=== PATIENT | male | born 1955 | race Caucasian/White ===

== ENCOUNTER 2023-10-17 21:57 | Emergency (ER) | payer MEDICARE, OTHER, SELFPAY ==
[2023-10-17 22:01] VITALS: BP 140/61
[2023-10-17 22:08] LABS: Glucose - Point of Care 167 mg/dl (70-99)
[2023-10-17 22:36] LABS: COVID-19 Antigen Negative (Negative)
--- NOTE | 2023-10-17 23:02 | ED.GENMED ---
History of Present Illness
General
Chief Complaint: Weakness
Source: patient
Exam Limitations: none
Time Seen by Provider: 10/17/23 22:30
Travel History
Have you had any contact with someone who has COVID-19?: No
Do you have any symptoms of coronavirus? Fever > 100 degrees, chills, cough, shortness of breath, sore throat, loss of taste or smell, muscle aches, or headache?: No
History of Present Illness
History of Present Illness:
This is a 68 year old male that comes in with c/o dizziness. State that he was at work and he bent over and he lost his balance. States that he was dizzy and grabbing onto things. States that he got help to a chair and he felt that the room was
spinning. States that he felt weak and dizzy. States that he got a headache on the top of his head and then felt like he was spinning. Denies dizziness at this time. Denies any fever, chills, chest pain, SOB, abd pain, nausea, vomiting, diarrhea,
urinary burning.
Past History
Past History
ED Past Medical History: Arrthythmia (atrial fibrillation), COPD and NIDDM
ED Past Surgical History: Cardiac (Ablation X 2), Orthopedic (Neck fusion, ) and Urological (Prostate Surgery just 2 weeks ago from 10/17/23)
Social History
Tobacco: Smoker
Alcohol: Daily (Wine 2 glasses)
Personal: Single
Living: alone
Employment: Employed
Review of Systems
Review of Systems
All Other Systems: ROS reviewed and negative except as documented in HPI and ROS
Constitutional: Reports no symptoms; Denies fever or chills
EENT: Reports no symptoms
Respiratory: Reports no symptoms; Denies cough or trouble breathing
Cardiac: Reports no symptoms; Denies chest pain
ABD/GI: Reports no symptoms; Denies abdominal pain, nausea, vomiting or diarrhea
: Reports no symptoms; Denies dysuria, frequency or urgency
Musculoskeletal: Reports no symptoms
Skin: Reports no symptoms
Neurological: Reports dizzy and headache
Psychiatric: Reports no symptoms
Phy Exam
General Physical Exam
General Presentation: well appearing and no apparent distress
General age: appears stated age
General Skin: warm and dry
General Habitus: normal
General Mental: alert
General Hydration: appears well hydrated
ENT Exam
ENT Exam: TM's normal, pharynx normal and neck supple
Eye Exam
Eye Exam: EOMI
Cardiovascular Exam
Cardiovascular Exam: regular rate/rhythm, no edema, no murmur and normal peripheral pulses
Pulmonary Exam
Pulmonary Exam: lungs clear, no respiratory distress, no rales, chest non tender, no crackles, no rhonchi, no wheezing and no cough
Gastrointestinal Exam
Gastrointestinal Exam: normal bowel sounds, non tender, soft, no organomegaly, no pulsatile mass and non distended
Musculoskeletal Exam
Musculoskeletal Exam: full ROM and no edema
Skin Exam
Skin Exam: normal color, warm/dry, no rash and no petechia
Psychiatric Exam
Psychiatric Exam: normal mood/affect
Course
Orders/Labs/Results
Orders:
Orders
10/17/23 22:08
Electrocardiogram (*1) Urgent
Reason for Study: Syncope
10/17/23 22:09
EKG- Treatment ONCE
10/17/23 22:10
COVID-19 Antigen Urgent
Source: Nasal Swab
Influenza A+B Rapid Molecular Urgent
[facility] Source: Nasal Swab
Specimen Description:
10/17/23 22:41
0.9% Sodium Chloride 1000 ml [Nss] 1,000 ml IV BOLUS
10/17/23 22:42
CT Head W/o Iv Contrast Urgent
Comment:
Reason For Exam: Dizziness
Urinalysis Reflex To Culture Urgent
Nursing to Place Non Medication Order As Directed
Physician Order: Please interrogate pacer
10/17/23 23:09
Complete Blood Count/With Diff Urgent
Comprehensive Metabolic Panel Urgent
Troponin I Urgent
Abnormal Lab Results
10/17/23 10/17/23
22:07 23:09
RBC 4.40 L 10^6/uL
(4.70-6.10)
MCV 97.5 H fL
(80.0-94.0)
MCH 34.3 H pg
(27.0-31.0)
Absolute Monos (auto) 0.7 H 10^3/uL
(0.1-0.6)
Lymphocytes % 19.3 L %
(20.5-51.1)
Sodium 134 L mmol/L
(135-145)
Creatinine 0.6 L mg/dL
(0.7-1.3)
Glucose 165 H mg/dl
(70-99)
POC Glucose 167 H mg/dl
(70-99)
10/17/23 23:09
10/17/23 23:09
Anemia, Glucose nonfasting. COVID and Influenza negative. Troponin <0.012,
Vital Signs
Initial and Last Documented VS:
Initial Vital Signs
Temp Pulse Resp BP Pulse Ox
98.2 F 60 18 140/61 97
10/17/23 22:01 10/17/23 22:01 10/17/23 22:01 10/17/23 22:01 10/17/23 22:01
Last Documented Vital Signs
Temp Pulse Resp BP Pulse Ox
98.2 F 64 20 140/67 97
10/17/23 22:01 10/18/23 00:02 10/18/23 00:02 10/18/23 00:02 10/18/23 00:02
MDM/Problems Addressed
Differential Diagnosis Includes:
Dizziness, Vertigo, Dehydration,
MDM/Problems Addressed:
This is a 68 year old male that comes in with c/o dizziness. States that he bent over and became very dizzy. States that he was grabbing for things to hold onto and he got help and was placed in a chair. State that he then felt like he was spinning.
Will get labs, CT head, IV fluids.
Back into see patient. Patient states that he is feeling much better. States that he is just hungry and ready to go home. Got patient OOB and ambulated in the room without assistance and is very stable. Will discharge home.
Chronic conditions affecting care:
NA
Acute Exacerbation and/or Progression of Chronic Illness:
NA
*Radiology
Radiology exam reviewed: radiology read reviewed (CT head- night hawk- NO acute intracranial hemorrhage, mass or mass-effect. White matter small vessel ischemic disease. Diffuse atrophy with ventriculomegaly. Visualized paranasal sinuses, middle
ears and mastoid air cells are clear. )
*Pulse Oximetry
Patient hypoxic: no
*EKG
Interpreted by ED Provider?: Yes
Heart Rate: 62
Rate: normal
Rhythm: av sequential
[place]: normal axis
*Critical Care Note
Total Time (30-74mins, 75-104mins- exclusive of procedures): Not Applicable
ED Attending Note
-
Portions of this chart may have been created with voice recognition software.� Occasional wrong word or��sound alike� substitutions may have occurred due to the inherent limitations of voice recognition software.
Discharge Plan
Departure
Patient Disposition: Home (Routine Discharge)
Date of Disposition: 10/18/23
Time of Disposition: 00:50
Patient with high blood pressure during this ER visit?: Yes
Condition: Good
Covid-19: Negative COVID-19
Discharge Problem:
Dizziness
Instructions: Dizziness, Adult ED, BLOOD PRESSURE
Prescriptions:
No Action
benzonatate 100 mg capsule
100 mg PO BID PRN (Reason: Cough) Qty: 14 0RF
azithromycin 250 mg tablet
250 mg PO DAILY 4 Days Qty: 4 0RF
Referrals:
Beverly Morris MD [Active] - Call in 1-3 days for appt
UNKNOWN - PT DOES,NOT KNOW [Unknown Provider] -
Activity Restrictions/Additional Instructions:
As discussed, your blood work shows slight anemia, otherwise your labs are normal. You are COVID and Influenza negative. Your CT of the head is normal. Please increase your water intake to 8-8oz glasses daily. Follow up with the family doctor for
recheck. IF YOU HAVE INCREASED OR CHANGING DIZZINESS, OR YOU HAVE ANY OTHER CONCERNS PLEASE RETURN TO THE EMERGENCY ROOM.
Interventions
Interventions:
*Risk Screen - Suicide Last Done: 10/17/23 22:01
*General Assessment Last Done: 10/17/23 22:01
*Neglect/Abuse Screening Last Done: 10/17/23 22:01
*ED COVID-19 Vaccine History Last Done: 10/17/23 22:01
ED- Cardiac Assessment Last Done: 10/17/23 23:40
ED- Neurological Assessment Last Done: 10/17/23 23:40
ED- Pulmonary Assessment Last Done: 10/17/23 23:40
[2023-10-17] MEDS: NSS 1000 IV (23:08)
[2023-10-17 23:16] LABS: % Basophils 0.7 % (0-2); % Eosinophils 1.9 % (0-6); % Immature Granulocytes 0.3 % (0-0.5); % Lymphocytes 19.3 % (20.5-51.1); % Monocytes 8.7 % (1.7-9.3); % Neutrophils 69.1 % (42.2-75.2); Absolute Basophils 0.1 10^3/uL (0-0.2); Absolute Eosinophils 0.1 10^3/uL (0-0.7); Absolute Lymphocytes 1.4 10^3/uL (1.2-3.4); Absolute Monocytes 0.7 10^3/uL (0.1-0.6); Absolute Neutrophils 5.2 10^3/uL (1.4-6.5); Hematocrit 42.9 % (39.0-52.0); Hemoglobin 15.1 g/dL (13.0-18.0); Mean Corp Hgb Conc. 35.2 g/dL (33.0-37.0); Mean Corpuscular Hgb 34.3 pg (27.0-31.0); Mean Corpuscular Volume 97.5 fL (80.0-94.0); Mean Platelet Volume 9.5 fL (7.4-10.4); Nucleated Red Blood Cells % 0 % (-); Platelet Count 140 10^3/uL (130-400); Red Cell Dist. Width 13.2 % (11.5-14.5); White Blood Cell Count 7.5 10^3/uL (4.8-10.8)
[2023-10-17 23:40] LABS: ALT (SGPT) 24 U/L (0-50); AST (SGOT) 28 U/L (17-59); Albumin 4.6 g/dl (3.5-5.0); Alkaline Phosphatase 76 U/L (38-126); Blood Urea Nitrogen 19 mg/dl (9-20); Calcium 9.8 mg/dl (8.4-10.2); Carbon Dioxide 23 mmol/L (22-30); Chloride 106 mmol/L (98-107); Glucose 165 mg/dl (70-99); Sodium 134 mmol/L (135-145); Total Bilirubin 0.7 mg/dl (0.2-1.3); Total Protein 7.4 g/dl (6.3-8.2); Troponin I < 0.012 ng/ml; eGFR > 60.00
[2023-10-18 00:02] VITALS: BP 140/67
[2023-10-18 01:10] LABS: Glucose - Point of Care 129 mg/dl (70-99)
== END 2023-10-18 01:12 | disposition home or self-care (01) ==
LOC: EMR 21:57
PROVIDERS: Clinical Nurse Specialist Family Health; Emergency Medicine; EMERGENCY PHYSICIAN Emergency Medicine
DX: R42 Dizziness and giddiness (principal); R03.0 Elevated blood-pressure reading, without diagnosis of hypertension; F17.200 Nicotine dependence, unspecified, uncomplicated; Z11.52 Encounter for screening for COVID-19
CPT/HCPCS: 99284; 96360; 70450; 80053; 82962; 84484; 85025; 87502; 87811; 93005

== ENCOUNTER → 2023-12-30 06:23 | Day surgery (SDC) | payer MEDICARE, OTHER, SELFPAY ==
[2023-12-30 08:15] LABS: Glucose - Point of Care 121 mg/dl (70-99)
== END ==
LOC: GI 06:23
PROVIDERS: ATTENDING PHYSICIAN Internal Medicine Gastroenterology
DX: R19.4 Change in bowel habit (principal); R63.4 Abnormal weight loss; K57.50 Diverticulosis of both small and large intestine without perforation or abscess without bleeding; K64.8 Other hemorrhoids; K31.7 Polyp of stomach and duodenum; R12 Heartburn; Z53.8 Procedure and treatment not carried out for other reasons
CPT/HCPCS: 45378; 43239; 88305; 82962

== ENCOUNTER → 2024-01-14 13:43 | Outpatient (REF) | payer MEDICARE, OTHER, SELFPAY ==
[2024-01-14 14:59] LABS: % Basophils 0.8 % (0-2); % Eosinophils 2.5 % (0-6); % Immature Granulocytes 0.6 % (0-0.5); % Lymphocytes 20.3 % (20.5-51.1); % Monocytes 7.2 % (1.7-9.3); % Neutrophils 68.6 % (42.2-75.2); Absolute Basophils 0.1 10^3/uL (0-0.2); Absolute Eosinophils 0.2 10^3/uL (0-0.7); Absolute Immature Granulocytes 0.1 10^3/uL (0-0.05); Absolute Lymphocytes 1.6 10^3/uL (1.2-3.4); Absolute Monocytes 0.6 10^3/uL (0.1-0.6); Absolute Neutrophils 5.4 10^3/uL (1.4-6.5); Hematocrit 49.1 % (39.0-52.0); Hemoglobin 16.9 g/dL (13.0-18.0); Mean Corp Hgb Conc. 34.4 g/dL (33.0-37.0); Mean Corpuscular Hgb 33.3 pg (27.0-31.0); Mean Corpuscular Volume 96.7 fL (80.0-94.0); Mean Platelet Volume 9.9 fL (7.4-10.4); Nucleated Red Blood Cells % 0 % (-); Platelet Count 181 10^3/uL (130-400); Red Blood Cell Count 5.08 10^6/uL (4.70-6.10); Red Cell Dist. Width 11.9 % (11.5-14.5); White Blood Cell Count 7.9 10^3/uL (4.8-10.8)
[2024-01-14 15:22] LABS: Urine Albumin Negative (Neg - Trace); Urine Bilirubin Negative (Negative); Urine Character Clear (Clear); Urine Color Yellow; Urine Glucose 3+ (Negative); Urine Ketone Negative (Negative); Urine Leukocyte Negative (Negative); Urine Nitrite Negative (Negative); Urine Occult Blood Negative (Negative); Urine Specific Gravity 1.015 (<1.030); Urine Urobilinogen Negative (Neg - 1+)
[2024-01-14 15:53] LABS: ALT (SGPT) 23 U/L (0-50); AST (SGOT) 21 U/L (17-59); Albumin 4.7 g/dl (3.5-5.0); Alkaline Phosphatase 76 U/L (38-126); Blood Urea Nitrogen 18 mg/dl (9-20); Calcium 10.5 mg/dl (8.4-10.2); Carbon Dioxide 29 mmol/L (22-30); Chloride 102 mmol/L (98-107); Glucose 201 mg/dl (70-99); HDL Cholesterol 64 mg/dl; LDL Cholesterol, Calculated 170 mg/dl; Potassium 5.8 mmol/L (3.5-5.1); Sodium 140 mmol/L (135-145); Total Bilirubin 0.6 mg/dl (0.2-1.3); Total Cholesterol 256 mg/dl (50-199); Total Protein 7.6 g/dl (6.3-8.2); Triglyceride 113 mg/dl (10-149); Very Low Density Lipoprotein 22 mg/dl (0-30); eGFR > 60.00
[2024-01-14 16:08] LABS: Vitamin D, 25-OH*** 27.1 ng/mL (30-80)
[2024-01-14 16:22] LABS: PSA, Total - Screen 5.02 ng/ml (0.0-4.0); TSH Reflex To Free T4 0.51 uIU/ml (0.47-4.68)
[2024-01-15 09:34] LABS: Glycohemoglobin (HgbA1c) 9.9 % (4.0-5.6)
== END ==
LOC: REG 13:43
PROVIDERS: ATTENDING PHYSICIAN Nurse Practitioner Family
DX: Z76.89 Persons encountering health services in other specified circumstances (principal); Z01.89 Encounter for other specified special examinations; E11.9 Type 2 diabetes mellitus without complications; E78.2 Mixed hyperlipidemia; K21.9 Gastro-esophageal reflux disease without esophagitis; I10 Essential (primary) hypertension; I48.91 Unspecified atrial fibrillation; Z12.5 Encounter for screening for malignant neoplasm of prostate; E55.9 Vitamin D deficiency, unspecified
CPT/HCPCS: 36415; 80053; 80061; 81003; 82306; 83036; 84443; 85025; G0103

== ENCOUNTER → 2024-01-16 14:33 | Outpatient (REF) | payer MEDICARE, OTHER, SELFPAY ==
[2024-01-16 15:26] LABS: Blood Urea Nitrogen 18 mg/dl (9-20); Calcium 10.6 mg/dl (8.4-10.2); Carbon Dioxide 30 mmol/L (22-30); Chloride 101 mmol/L (98-107); Glucose 235 mg/dl (70-99); Potassium 5.6 mmol/L (3.5-5.1); Sodium 138 mmol/L (135-145); eGFR > 60.00
== END ==
LOC: REG 14:33
PROVIDERS: ATTENDING PHYSICIAN Nurse Practitioner Family
DX: R89.9 Unspecified abnormal finding in specimens from other organs, systems and tissues (principal)
CPT/HCPCS: 36415; 80048

== ENCOUNTER → 2024-02-13 13:06 | Outpatient (REF) | payer MEDICARE, OTHER, SELFPAY ==
[2024-02-13 13:51] LABS: ALT (SGPT) 24 U/L (0-50); AST (SGOT) 24 U/L (17-59); Albumin 4.6 g/dl (3.5-5.0); Alkaline Phosphatase 78 U/L (38-126); Blood Urea Nitrogen 20 mg/dl (9-20); Calcium 10.3 mg/dl (8.4-10.2); Carbon Dioxide 25 mmol/L (22-30); Chloride 102 mmol/L (98-107); Glucose 182 mg/dl (70-99); Potassium 4.6 mmol/L (3.5-5.1); Sodium 137 mmol/L (135-145); Total Bilirubin 0.6 mg/dl (0.2-1.3); Total Protein 7.5 g/dl (6.3-8.2); eGFR > 60.00
[2024-02-15 20:39] LABS: Fructosamine 383 umol/L (205-285)
== END ==
LOC: REG 13:06
PROVIDERS: ATTENDING PHYSICIAN Nurse Practitioner Family
DX: E11.9 Type 2 diabetes mellitus without complications (principal); E11.65 Type 2 diabetes mellitus with hyperglycemia; E78.2 Mixed hyperlipidemia
CPT/HCPCS: 36415; 80053; 82985

== ENCOUNTER → 2024-03-05 12:39 | Outpatient (REF) | payer MEDICARE, OTHER, SELFPAY ==
[2024-03-05 13:43] LABS: % Basophils 0.6 % (0-2); % Eosinophils 3.1 % (0-6); % Immature Granulocytes 0.5 % (0-0.5); % Lymphocytes 20.7 % (20.5-51.1); % Monocytes 8.8 % (1.7-9.3); % Neutrophils 66.3 % (42.2-75.2); Absolute Basophils 0.1 10^3/uL (0-0.2); Absolute Eosinophils 0.3 10^3/uL (0-0.7); Absolute Lymphocytes 1.7 10^3/uL (1.2-3.4); Absolute Monocytes 0.7 10^3/uL (0.1-0.6); Absolute Neutrophils 5.4 10^3/uL (1.4-6.5); Hematocrit 47.7 % (39.0-52.0); Hemoglobin 16.7 g/dL (13.0-18.0); Mean Corpuscular Hgb 33.7 pg (27.0-31.0); Mean Corpuscular Volume 96.4 fL (80.0-94.0); Nucleated Red Blood Cells % 0 % (-); Platelet Count 196 10^3/uL (130-400); Red Blood Cell Count 4.95 10^6/uL (4.70-6.10); Red Cell Dist. Width 12.5 % (11.5-14.5); White Blood Cell Count 8.1 10^3/uL (4.8-10.8)
[2024-03-05 14:19] LABS: ALT (SGPT) 23 U/L (0-50); AST (SGOT) 27 U/L (17-59); Albumin 4.9 g/dl (3.5-5.0); Alkaline Phosphatase 73 U/L (38-126); Blood Urea Nitrogen 18 mg/dl (9-20); Calcium 10.4 mg/dl (8.4-10.2); Carbon Dioxide 31 mmol/L (22-30); Chloride 97 mmol/L (98-107); Glucose 134 mg/dl (70-99); HDL Cholesterol 55 mg/dl; LDL Cholesterol, Calculated 115 mg/dl; Potassium 4.6 mmol/L (3.5-5.1); Sodium 138 mmol/L (135-145); Total Bilirubin 0.7 mg/dl (0.2-1.3); Total Cholesterol 193 mg/dl (50-199); Total Protein 7.5 g/dl (6.3-8.2); Triglyceride 115 mg/dl (10-149); Very Low Density Lipoprotein 23 mg/dl (0-30); eGFR > 60.00
[2024-03-05 14:33] LABS: FSH 2.5 mIU/ml (1.55-9.74); Luteinizing Hormone 1.04 mIU/ml (1.24-7.80); Prolactin 10.7 ng/ml (3.7-17.9)
[2024-03-05 14:47] LABS: PSA, Total - Diagnostic 3.58 ng/ml (0.0-4.0)
[2024-03-05 14:48] LABS: Estradiol 44.6 pg/ml (5.4-66)
[2024-03-07 19:45] LABS: Thyroglobulin Antibodies <0.9 IU/mL (0.0-4.0); Thyroid Peroxidase Ab (TPO) 0.8 IU/mL (0.0-9.0)
== END ==
LOC: REG 12:39
PROVIDERS: ATTENDING PHYSICIAN Urology; FAMILY PHYSICIAN Nurse Practitioner Family; REFERRING PHYSICIAN Urology
DX: N52.9 Male erectile dysfunction, unspecified (principal)
CPT/HCPCS: 36415; 80053; 80061; 82670; 83001; 83002; 84146; 84153; 84270; 84402; 84403; 85025; 86376; 86800

== ENCOUNTER → 2024-04-07 13:52 | Outpatient (REF) | payer MEDICARE, OTHER, SELFPAY ==
[2024-04-07 15:41] LABS: % Basophils 0.8 % (0-2); % Eosinophils 3.8 % (0-6); % Immature Granulocytes 0.4 % (0-0.5); % Lymphocytes 25.8 % (20.5-51.1); % Monocytes 7.2 % (1.7-9.3); Absolute Basophils 0.1 10^3/uL (0-0.2); Absolute Eosinophils 0.3 10^3/uL (0-0.7); Absolute Lymphocytes 1.8 10^3/uL (1.2-3.4); Absolute Monocytes 0.5 10^3/uL (0.1-0.6); Absolute Neutrophils 4.4 10^3/uL (1.4-6.5); Hematocrit 45.8 % (39.0-52.0); Hemoglobin 16.3 g/dL (13.0-18.0); Mean Corp Hgb Conc. 35.6 g/dL (33.0-37.0); Mean Corpuscular Hgb 33.8 pg (27.0-31.0); Nucleated Red Blood Cells % 0 % (-); Platelet Count 186 10^3/uL (130-400); Red Blood Cell Count 4.82 10^6/uL (4.70-6.10); Red Cell Dist. Width 12.4 % (11.5-14.5); White Blood Cell Count 7.1 10^3/uL (4.8-10.8)
[2024-04-07 16:14] LABS: Microalbumin, Random Urine 0.9 mg/dl (0.6-1.7); Microalbumin/creatinine Ratio 14.9 mg/g
[2024-04-07 18:41] LABS: HIV Combo Negative (Negative)
[2024-04-08 10:07] LABS: Glycohemoglobin (HgbA1c) 7.1 % (4.0-5.6)
[2024-04-10 11:12] LABS: Syphilis/T. pallidum Ab Reflex Negative (Negative)
== END ==
LOC: REG 13:52
PROVIDERS: ATTENDING PHYSICIAN Nurse Practitioner Family
DX: E11.9 Type 2 diabetes mellitus without complications (principal); Z11.3 Encounter for screening for infections with a predominantly sexual mode of transmission
CPT/HCPCS: 36415; 82043; 82570; 83036; 85025; 86780; 87389

== ENCOUNTER → 2024-07-23 11:02 | Outpatient (REF) | payer MEDICARE, OTHER, SELFPAY ==
[2024-07-23 12:27] LABS: % Basophils 0.3 % (0-2); % Eosinophils 3.7 % (0-6); % Immature Granulocytes 0.2 % (0-0.5); % Lymphocytes 31.3 % (20.5-51.1); % Monocytes 8.7 % (1.7-9.3); % Neutrophils 55.8 % (42.2-75.2); Absolute Eosinophils 0.2 10^3/uL (0-0.7); Absolute Lymphocytes 1.9 10^3/uL (1.2-3.4); Absolute Monocytes 0.5 10^3/uL (0.1-0.6); Absolute Neutrophils 3.4 10^3/uL (1.4-6.5); Mean Corp Hgb Conc. 34.7 g/dL (33.0-37.0); Mean Corpuscular Hgb 34.2 pg (27.0-31.0); Mean Corpuscular Volume 98.6 fL (80.0-94.0); Nucleated Red Blood Cells % 0 % (-); Platelet Count 155 10^3/uL (130-400); Red Blood Cell Count 4.97 10^6/uL (4.70-6.10); Red Cell Dist. Width 12.5 % (11.5-14.5)
[2024-07-23 12:53] LABS: ALT (SGPT) 24 U/L (0-50); AST (SGOT) 25 U/L (17-59); Albumin 4.6 g/dl (3.5-5.0); Alkaline Phosphatase 57 U/L (38-126); Blood Urea Nitrogen 17 mg/dl (9-20); Carbon Dioxide 29 mmol/L (22-30); Chloride 102 mmol/L (98-107); Glucose 143 mg/dl (70-99); Lipase 51 U/L (23-300); Potassium 5.2 mmol/L (3.5-5.1); Sodium 141 mmol/L (135-145); Total Bilirubin 0.4 mg/dl (0.2-1.3); Total Protein 7.4 g/dl (6.3-8.2); eGFR > 60.00
[2024-07-23 13:01] LABS: IgA 245 mg/dl (70-400)
[2024-07-23 13:23] LABS: TSH Reflex To Free T4 1.16 uIU/ml (0.47-4.68)
[2024-07-24 15:43] LABS: tTG IgA Antibody 5.5 EU/ml (0-19); tTG IgG Antibody 8.3 EU/ml (0-19)
[2024-07-26 00:54] LABS: Endomysial IgA Antibody Titer <1:10 (<1:10)
== END ==
LOC: REG 11:02
PROVIDERS: ATTENDING PHYSICIAN Nurse Practitioner Family
DX: K52.9 Noninfective gastroenteritis and colitis, unspecified (principal); E07.9 Disorder of thyroid, unspecified
CPT/HCPCS: 36415; 80053; 82784; 83516; 83690; 84443; 85025; 86231

== ENCOUNTER → 2024-12-08 15:45 | Outpatient (REF) | payer OTHER, MEDICARE, SELFPAY | LOC: RAD 15:45 | PROVIDERS: ATTENDING PHYSICIAN Nurse Practitioner Family | DX: M25.531 Pain in right wrist (principal) | CPT/HCPCS: 73090; 73110; 73120 ==

== ENCOUNTER → 2025-01-18 13:39 | Outpatient (REF) | payer OTHER, MEDICARE, SELFPAY | LOC: MRI 3T 13:39 | PROVIDERS: ATTENDING PHYSICIAN Nurse Practitioner Family | DX: M54.12 Radiculopathy, cervical region (principal) | CPT/HCPCS: 72141; 76014; 76015 ==

== ENCOUNTER → 2025-04-30 12:40 | Outpatient (REF) | payer OTHER, MEDICARE, SELFPAY | LOC: EMG 12:40 | PROVIDERS: ATTENDING PHYSICIAN Orthopaedic Surgery Hand Surgery; FAMILY PHYSICIAN Nurse Practitioner Family | DX: G56.01 Carpal tunnel syndrome, right upper limb (principal); M19.041 Primary osteoarthritis, right hand; R20.0 Anesthesia of skin | CPT/HCPCS: 95886; 95909 ==

== ENCOUNTER → 2025-04-30 13:42 | Outpatient (REF) | payer MEDICARE, OTHER, SELFPAY ==
[2025-04-30 14:22] LABS: Hematocrit 46.8 % (39.0-52.0); Hemoglobin 16.5 g/dL (13.0-18.0); Mean Corp Hgb Conc. 35.3 g/dL (33.0-37.0); Mean Corpuscular Volume 94.9 fL (80.0-94.0); Nucleated Red Blood Cells % 0 % (-); Platelet Count 145 10^3/uL (130-400); Red Cell Dist. Width 13.2 % (11.5-14.5)
[2025-04-30 14:24] LABS: Urine Character Clear (Clear)
[2025-04-30 15:15] LABS: Microalb - Urine Creatinine 49.100 mg/dl
[2025-04-30 15:19] LABS: Microalbumin, Random Urine 1.2 mg/dl (0.6-1.7)
[2025-04-30 15:33] LABS: ALT (SGPT) 28 U/L (0-50); AST (SGOT) 20 U/L (17-59); Albumin 4.6 g/dl (3.5-5.0); Alkaline Phosphatase 67 U/L (38-126); Blood Urea Nitrogen 18 mg/dl (9-20); Calcium 10.3 mg/dl (8.4-10.2); Carbon Dioxide 27 mmol/L (22-30); Chloride 104 mmol/L (98-107); Glucose 178 mg/dl (70-99); HDL Cholesterol 59 mg/dl; LDL Cholesterol, Calculated 102 mg/dl; Potassium 5.4 mmol/L (3.5-5.1); Sodium 138 mmol/L (135-145); Total Protein 7.4 g/dl (6.3-8.2); Very Low Density Lipoprotein 18 mg/dl (0-30); eGFR > 60.00
[2025-05-01 09:18] LABS: Glycohemoglobin (HgbA1c) 7.5 % (4.0-5.6)
== END ==
LOC: REG 13:42
PROVIDERS: ATTENDING PHYSICIAN Nurse Practitioner Family
DX: E11.69 Type 2 diabetes mellitus with other specified complication (principal); Z01.89 Encounter for other specified special examinations
CPT/HCPCS: 36415; 80053; 80061; 81003; 82043; 82570; 83036; 84443; 85025

== ENCOUNTER → 2025-05-07 14:18 | Outpatient (REF) | payer MEDICARE, OTHER, SELFPAY ==
[2025-05-07 15:54] LABS: Blood Urea Nitrogen 17 mg/dl (9-20); Calcium 9.8 mg/dl (8.4-10.2); Carbon Dioxide 22 mmol/L (22-30); Chloride 107 mmol/L (98-107); Glucose 168 mg/dl (70-99); Potassium 4.5 mmol/L (3.5-5.1); Sodium 139 mmol/L (135-145); eGFR > 60.00
== END ==
LOC: REG 14:18
PROVIDERS: ATTENDING PHYSICIAN Nurse Practitioner Family
DX: R89.9 Unspecified abnormal finding in specimens from other organs, systems and tissues (principal)
CPT/HCPCS: 36415; 80048

== ENCOUNTER → 2025-05-11 15:57 | Outpatient (REF) | payer MEDICARE, OTHER, SELFPAY | LOC: REG 15:57 | PROVIDERS: ATTENDING PHYSICIAN Nurse Practitioner Family | DX: E11.65 Type 2 diabetes mellitus with hyperglycemia (principal); R39.11 Hesitancy of micturition; I48.91 Unspecified atrial fibrillation | CPT/HCPCS: 36415; 93005 ==

== ENCOUNTER → 2025-05-12 14:21 | Outpatient (REF) | payer MEDICARE, OTHER, SELFPAY ==
[2025-05-12 18:41] LABS: PSA, Total - Screen 4.04 ng/ml (0.0-4.0)
== END ==
LOC: REG 14:21
PROVIDERS: ATTENDING PHYSICIAN Nurse Practitioner Family; OTHER PHYSICIAN Urology
DX: Z12.5 Encounter for screening for malignant neoplasm of prostate (principal)
CPT/HCPCS: 36415; G0103

== ENCOUNTER → 2025-06-15 15:54 | Outpatient (REF) | payer MEDICARE, OTHER, SELFPAY | LOC: CLAB 15:54 | PROVIDERS: ATTENDING PHYSICIAN Urology | DX: R97.20 Elevated prostate specific antigen [PSA] (principal) | CPT/HCPCS: 88305 ==

== ENCOUNTER 2025-07-22 22:54 | Inpatient (IN) | payer MEDICARE, OTHER, SELFPAY ==
[2025-07-22 19:43] VITALS: BP 131/75
[2025-07-22 20:00] VITALS: BP 116/64
[2025-07-22 20:01] VITALS: BMI 23.6
[2025-07-22 20:17] LABS: Hematocrit 41.3 % (39.0-52.0); Hemoglobin 14.3 g/dL (13.0-18.0); Mean Corp Hgb Conc. 34.6 g/dL (33.0-37.0); Mean Corpuscular Volume 96.3 fL (80.0-94.0); Nucleated Red Blood Cells % 0 % (-); Platelet Count 199 10^3/uL (130-400); Red Cell Dist. Width 12.4 % (11.5-14.5)
[2025-07-22 20:34] LABS: ALT (SGPT) 30 U/L (0-50); AST (SGOT) 24 U/L (17-59); Albumin 3.6 g/dl (3.5-5.0); Alkaline Phosphatase 98 U/L (38-126); Blood Urea Nitrogen 14 mg/dl (9-20); Calcium 9.1 mg/dl (8.4-10.2); Carbon Dioxide 27 mmol/L (22-30); Chloride 101 mmol/L (98-107); Estimated Creatinine Clearance 116 ml/min; Glucose 268 mg/dl (70-99); Potassium 4.1 mmol/L (3.5-5.1); Sodium 133 mmol/L (135-145); Total Protein 6.6 g/dl (6.3-8.2); eGFR > 60.00
--- NOTE | 2025-07-22 20:37 | ED.GENMED ---
History of Present Illness
General
Chief Complaint: Cough
Source: patient and physician (Urgent care physician)
Exam Limitations: none
Time Seen by Provider: 07/22/25 20:24
Nursing documentation reviewed up to this point in time: agreed with
History of Present Illness
History of Present Illness:
69-year-old male with a past medical history of atrial fibrillation on Eliquis, pacemaker, diabetes, hypertension who presents to the emergency department for evaluation of shortness of breath�was seen in urgent care and noted to be hypoxic,
referred to the ER. Patient reports that symptoms started 6 days ago�he was on a vacation in [place] and when he was walking around the airport on his way home he noticed that he was very short of breath. He says that when he returned home
he had to take 2 long car rides and even while driving noted that he was feeling very short of breath. He says that he started to develop cough that was initially productive of yellowish sputum with occasional scant hemoptysis. He says he was
having some fatigue and general achiness. Initially presented to urgent care 07/18/2025 and had a chest x-ray that was apparently concerning for a left lower lobe pneumonia. He was started on antibiotics (Augmentin and azithromycin). He says that
despite this he has had continued shortness of breath and cough which prompted return visit to the urgent care. He had a repeat chest x-ray today which showed new right lower lung infiltrate and left pleural effusion and he was noted to be hypoxic
and was referred to the ER. Aside from above symptoms he denies any chest pain. He has not had any fever. Has not had any swelling or pain in the legs. He did have some diarrhea a few days ago but he says this improved with Pepto-Bismol. Denies
any vomiting or abdominal pain. He does make note that after starting the antibiotic over the past 2 nights he has noticed pruritic rash.
Past History
Past History
ED Past Medical History: Arrthythmia (atrial fibrillation), COPD and NIDDM
ED Past Surgical History: Cardiac (Ablation X 2), Orthopedic (Neck fusion, ) and Urological (Prostate Surgery just 2 weeks ago from 2/29/24)
Social History
Tobacco: Smoker
Alcohol: Daily (Wine 2 glasses)
Personal: Single
Living: alone
Employment: Employed
Review of Systems
Review of Systems
All Other Systems: ROS reviewed and negative except as documented in HPI and ROS
Constitutional: Reports fatigue; Denies fever
EENT: Denies sore throat
Respiratory: Reports cough and trouble breathing
Cardiac: Denies chest pain or palpitations
ABD/GI: Reports diarrhea; Denies abdominal pain, nausea or vomiting
: Denies flank pain
Musculoskeletal: Denies neck pain or back pain
Skin: Reports itching and rash
Neurological: Denies dizzy or headache
Phy Exam
Physical Exam
Physical Exam:
General: Awake, alert, oriented x3; no acute distress
Head: Normocephalic, atraumatic
Eyes: Conjunctiva normal, sclera anicteric
Throat: Airway intact, handling secretions
Neck: Trachea midline, supple without meningismus
Lungs: Rales at the lung bases bilaterally; hypoxia requiring 4 L nasal cannula
Heart: Regular rate and rhythm, no murmurs, gallops, or rubs
Abd: Soft, non distended, nontender
Neuro: Grossly intact
Skin: Scattered papular rash on legs, abdomen, chest and back
Extremities: Warm and well-perfused, no edema, no calf tenderness
Scores
Heart Failure Risk
Heart Failure Risk Score: Not Applicable
Heart Score for Chest Pain Patients
STEMI patient?: Not applicable
Withdrawal Assessment of Alcohol
Withdrawal Assessment Completed?: Not applicable
Sepsis
Sepsis Screening
Sepsis Assessment: Sepsis
Sepsis Screen
Sepsis Screen: Sepsis
Date: 07/22/25
Time: 21:45
Course
Orders/Labs/Results
Orders:
Orders
07/22/25 19:49
Electrocardiogram (*1) Urgent
Reason for Study: Other
Other Reason for Exam: Possible Sepsis
Cardiac Monitoring- Treatment ONCE
EKG- Treatment ONCE
IV Insert/Care/Rem.- Treatment PRN
O2 Therapy [RESP] Urgent
Titrate/Wean O2 to maintain O2 sat greater than (%): 93
Special Instructions: TO MAINTAIN CONTINUOUS O2 SATS > OR = 93%
Pulse Ox/cont/shift [RESP] Urgent
Quantity: 1
Special Instructions: CONTINUOUS
07/22/25 20:06
Complete Blood Count/With Diff Urgent
Comprehensive Metabolic Panel Urgent
Lactic Acid Q4H
Comment: ON ICE, CANCEL 2ND ORDER IF FIRST LACTIC ACID LEVEL <2
Blood Culture Q20M
[facility] Source: Blood/Venous
Specimen Description:
Comment: Urgent from separate sites. If patient screens positive for possible sepsis
07/22/25 20:19
Blood Culture Q20M
[facility] Source: Blood/Venous
Specimen Description:
Comment: Urgent from separate sites. If patient screens positive for possible sepsis
07/22/25 20:37
CT Chest PE Study Urgent
Comment:
Reason For Exam: sob, hypoxia, cough (hemoptysis)
07/22/25 20:43
Interrogate Pacemaker- Treatment ONCE
07/22/25 21:07
COVID-19 Antigen Urgent
Source: Nasal Swab
Influenza A+B Rapid Molecular Urgent
[facility] Source: Nasal Swab
Specimen Description:
07/22/25 21:45
CefTRIAXone [Rocephin] 1,000 mg IV NOW STA
Doxycycline Hyclate [Vibramycin] 100 mg 0.9% Sodium Chloride 250 ml [Nss] 250 ml IV NOW
07/22/25 21:49
Dexamethasone Sod Phosphate [Decadron] 10 mg IV NOW STA
Diphenhydramine [Benadryl] 25 mg IV NOW STA
Abnormal Lab Results
07/22/25
20:06
RBC 4.29 L 10^6/uL
(4.70-6.10)
MCV 96.3 H fL
(80.0-94.0)
MCH 33.3 H pg
(27.0-31.0)
Abs Immat Gran (auto) 0.1 H 10^3/uL
(0-0.05)
Absolute Neuts (auto) 7.3 H 10^3/uL
(1.4-6.5)
Absolute Monos (auto) 1.0 H 10^3/uL
(0.1-0.6)
Immature Gran % 1.0 H %
(0-0.5)
Lymphocytes % 13.3 L %
(20.5-51.1)
Monocytes % 9.4 H %
(1.7-9.3)
Sodium 133 L mmol/L
(135-145)
Creatinine 0.5 L mg/dL
(0.7-1.3)
Glucose 268 H mg/dl
(70-99)
07/22/25 20:06
07/22/25 20:06
Vital Signs
Initial and Last Documented VS:
Initial Vital Signs
Temp Pulse Resp BP Pulse Ox
36.6 C 101 26 131/75 84
07/22/25 19:43 07/22/25 19:43 07/22/25 19:43 07/22/25 19:43 07/22/25 19:43
Last Documented Vital Signs
Temp Pulse Resp BP Pulse Ox
36.6 C 91 20 116/64 91
07/22/25 19:43 07/22/25 20:15 07/22/25 20:15 07/22/25 20:00 07/22/25 20:39
MDM/Problems Addressed
Differential Diagnosis Includes:
Pneumonia, bronchitis, pulmonary embolism, CHF
MDM/Problems Addressed:
69-year-old male presents for evaluation of shortness of breath, cough as described above�initially seen in urgent care and diagnosed with pneumonia, started on Augmentin and azithromycin which caused what appears to be a drug rash but did not
improve his symptoms; he returned to the urgent care today and had chest x-ray which showed worsening findings and increased hypoxia which prompted referral to the ER. On arrival here he is tachycardic and tachypneic, hypoxic but normotensive and
afebrile. His physical exam is as above. I was able to review chest x-ray from today there is hazy opacity in the right lower lung as well as a left pleural effusion. Overall suspect that this is acute pneumonia however given his report of
hemoptysis his tachypnea, tachycardia, hypoxia and recent flight we will check CT chest to rule out PE although this is much less likely with patient being on Eliquis for his history of A-fib. Will check basic labs, lactate and blood cultures.
Swab for COVID and flu. Anticipate admission.
CT chest shows no PE but signs consistent with pneumonia bilaterally. Plan to treat with IV antibiotics for community-acquired pneumonia. Patient having pruritus from rash we will give some Decadron and Benadryl. Admit for continued management.
Discussed case with hospitalist.
Chronic conditions affecting care:
A-fib on Eliquis
*Radiology
Radiology exam reviewed: preliminary read by ED provider and radiology read reviewed
*Pulse Oximetry
SaO2: 91
Oxygen Mode of Delivery: Room air
Patient hypoxic: yes (84%)
*EKG
Interpreted by ED Provider?: Yes
Heart Rate: 89
Rate: normal
Rhythm: sinus
[place]: normal axis
Interval: normal interval
QRS Pattern: normal QRS
Ischemia: no ischemia
*Critical Care Note
Total Time (30-74mins, 75-104mins- exclusive of procedures): Not Applicable
Data Reviewed
Review of Other/Old Records Reveals: Labs and Records
Source: patient, records and physician (Urgent care physician)
Patient Management
Discussion with other providers: Hospitalist (Discussed with hospitalist)
Escalation/DeEscalation of care consider admission/obs:
Admission indicated
ED Attending Note
-
Portions of this chart may have been created with voice recognition software.� Occasional wrong word or��sound alike� substitutions may have occurred due to the inherent limitations of voice recognition software.
Discharge Plan
Departure
Patient Disposition: Admit
Date of Disposition: 07/22/25
Time of Disposition: 21:51
Admit to doctor: Anastasia
Presentation/result/management discussed w/ accepting MD/DO: Hospitalist
Discharge Problem:
Acute hypoxemic respiratory failure, Pneumonia, Drug rash
Prescriptions:
No Action
benzonatate 100 mg capsule
100 mg PO BID PRN (Reason: Cough) Qty: 14 0RF
azithromycin 250 mg tablet
250 mg PO DAILY 4 Days Qty: 4 0RF
Referrals:
Andrew Rosales CRNP [Family Provider, General]
Interventions
Interventions:
*Risk Screen - Suicide Last Done: 07/22/25 19:43
*General Assessment Last Done: 07/22/25 19:43
*Neglect/Abuse Screening Last Done: 07/22/25 19:43
*ED COVID-19 Vaccine History Last Done: 07/22/25 19:43
*ED Influenza Vaccine History Last Done: 07/22/25 19:43
[facility] Fall Risk Assessment Tool Last Done: 07/22/25 20:10
ED- Pulmonary Assessment Last Done: 07/22/25 20:03
Discharge Date and Time
Print Language: URDU
[2025-07-22 21:32] LABS: COVID-19 Antigen Negative (Negative)
[2025-07-22] MEDS: BENADRYL 25 MG IV (22:05)
[2025-07-22] MEDS: DECADRON 10 MG IV (22:06)
[2025-07-22] MEDS: ROCEPHIN 1000 MG IV (22:09)
--- NOTE | 2025-07-22 22:18 | HPS.HSE ---
Addendum entered and electronically signed by Geoff Hay MD 07/22/25 23:28:
CORRECTION:
Progressive Lobar PNA @ LLL and RML
Associated acute hypoxic RF requiring 4 L NC O2
Complicated by drug rash due to OP PO Augmentin and Z max
- afebrile, Nl WCC
- BCx sent
- Agree with IV <del>CFTZ</del> Cefepime and PO Doxy
- Wean O2 as able - Goal POx > 93 %
Original Note:
Family Physician
-
Family Physician: PIEDAD Carter
Chief Complaint
-
seen in urgent care and noted to be hypoxic, referred to the ER.
History of Present Illness
69M PMHX Prx AF, chr Eliquis, PPM implant, DM, pHTN seen at ER
- sent to ER from [facility] for evaluation of shortness of breath and hypoxia
- Initially presented to urgent care 07/18/2025 and CXR apparently concerning for a LLL PNA. He was started on Augmentin and azithromycin complicated by drug rash but did not improve
- he returned to the urgent care today for follow up - again CXR showed worsening findings and increased hypoxia which prompted referral to the ER
Medical History
Past Medical History
Past Medical History: Reports Arrhythmia (Prx AF on Eliquis ), COPD, HTN, NIDDM (NOS ) and Other (PPM implant )
Past Surgical History: Reports Cardiac (PPM implant, Ablation X 2)), Orthopedic (Neck fusion,) and Urological ((Prostate Surgery ( 10/17/23))
Social History
Tobacco: Smoker
Alcohol: Daily (2 glasses daily )
Personal: Single
Living: Alone
Employment: Employed
Family History
Family History: Not pertinent
Allergies / Home Medications
Allergies reflects when Allergies were last updated in [facility].
Home Medications with original date entered in [facility]
Allergy/Medication List:
Allergies
Allergy/AdvReac Type Severity Reaction Status Date / Time
metformin Allergy Unknown Unknown Verified 07/22/25 19:42
diazepam (From Valium) Allergy Unknown Verified 10/17/23 22:06
Home Medications
azithromycin 250 mg tablet 250 mg PO DAILY 4 days #4 tabs 08/24/23
benzonatate 100 mg capsule 100 mg PO BID PRN Cough #14 caps 08/24/23
Review of Systems
-
Constitutional: Reports No Symptoms
EENT: Reports No Symptoms
Respiratory: Reports See HPI, Cough and Trouble Breathing
Cardiac: Reports No Symptoms
Abdomen/GI: Reports No Symptoms
: Reports No Symptoms
Musculoskeletal: Reports No Symptoms
Skin: Reports No Symptoms
Neurological: Reports No Symptoms
Endocrine: Reports No Symptoms
Hematologic/Lymphatic: Reports No Symptoms
Psych: Reports No Symptoms
Physical Exam
Vital Signs
Vital Signs
Temp Pulse Resp BP Pulse Ox
97.9 F 91 20 116/64 91
07/22/25 19:43 07/22/25 20:15 07/22/25 20:15 07/22/25 20:00 07/22/25 20:39
Physical Exam
General: No Apparent Distress, Comfortable and Conversant
HEENT: NormoCephalic, Moist mucous membranes, Atraumatic and Other
Respiratory: Rales (at bases ) and Other (hypoxia requiring 4 L nasal cannula)
Cardiac: S1/S2 and Regular Rhythm; No Murmur or Rub
GI: Soft, Non Tender, Non Distended and Normal Bowel Sounds; No Organomegaly
Rectal: Deferred by Provider
Musculoskeletal: No Clubbing, No Cyanosis and No Edema
Skin: No Rash
Neuro: Awake, Alert and Nonfocal/grossly intact
Psych: Calm
Laboratory Results
-
07/22/25 20:06
07/22/25 20:06
Laboratory Results
Lactic Acid 1.2 mmol/L (0.7-2.0) 07/22/25 20:06
Total Bilirubin 0.4 mg/dl (0.2-1.3) 07/22/25 20:06
AST 24 U/L (17-59) 07/22/25 20:06
ALT 30 U/L (0-50) 07/22/25 20:06
Alkaline Phosphatase 98 U/L (38-126) 07/22/25 20:06
Data Reviewed
-
CT Scan: Report Reviewed by me
Lab Data: Labs Reviewed by me
Impression/Plan
-
Vital Signs
Temp Pulse Resp BP Pulse Ox
97.9 F 85 17 116/64 93
07/22/25 19:43 07/22/25 22:15 07/22/25 22:15 07/22/25 20:00 07/22/25 22:00
Laboratory Tests
07/22/25 07/22/25
20:06 21:07
WBC 10.2
Hgb 14.3
Plt Count 199
Sodium 133 L
BUN 14
Creatinine 0.5 L
eGFR > 60.00
SARS-CoV-2 Antigen Negative
NEG Flu A & B
CTC with PE protocol
- No evidence of pulmonary embolism.
- Pulmonary artery branching order level of the most proximal pulmonary embolism: N/A
- COPD.
- Mild to moderate left lower lobe pneumonia.
Mild right lower lobe pneumonia.
- Trace left pleural effusion.
- Mild reactive adenopathy.
- Mild esophageal wall thickening raises the possibility of esophagitis in the proper clinical setting.
NO PRIOR hospitalist admission:
ASSESSMENT & PLAN
Pending Rx reconciliation
Progressive Lobar PNA @ LLL and RML
Associated acute hypoxic RF requiring 4 L NC O2
Complicated by drug rash due to OP PO Augmentin and Z max
- afebrile, Nl WCC
- BCx sent
- Agree with IV CFTZ and PO Doxy
- Wean O2 as able - Goal POx > 93 %
No evidence of acute PE
Recent travelling
Pruritus from diffuse various stages of dug rash all over the body sm limbs ( KISHAN > [facility]
Recent drug rash to PO Augmentin and Z amax ?
- s/p Decadron and Benadryl
- Start Medrol dose pack and IV Benadryl PRN with hold index for AMS
Chronic conditions affecting care:
A FIb on Eliquis
DVT Px: on Eliquis
Code: Full
IP TLM
[2025-07-22 22:53] VITALS: BP 96/59
[2025-07-22] MEDS: VIBRAMYCIN 260 MG IV (22:57)
[2025-07-22 23:00] VITALS: BP 107/65
[2025-07-23] VITALS (9 sets, daily range): BP systolic 99–129; BP diastolic 45–67; PULSE 78; O2SAT 95; BMI 22.9
[2025-07-23] MEDS: BENADRYL 6.25 MG IV ×2 (01:21→16:44)
[2025-07-23] MEDS: MUCINEX 600 MG PO ×2 (08:46→20:34)
[2025-07-23] MEDS: VIBRAMYCIN 100 MG PO ×2 (08:46→20:34)
[2025-07-23 09:28] LABS: Hematocrit 42.3 % (39.0-52.0); Hemoglobin 14.4 g/dL (13.0-18.0); Mean Corp Hgb Conc. 34.0 g/dL (33.0-37.0); Mean Corpuscular Volume 98.6 fL (80.0-94.0); Platelet Count 193 10^3/uL (130-400); Red Cell Dist. Width 12.3 % (11.5-14.5)
[2025-07-23 10:24] LABS: ALT (SGPT) 28 U/L (0-50); AST (SGOT) 21 U/L (17-59); Albumin 3.5 g/dl (3.5-5.0); Alkaline Phosphatase 94 U/L (38-126); Blood Urea Nitrogen 16 mg/dl (9-20); Calcium 9.1 mg/dl (8.4-10.2); Carbon Dioxide 29 mmol/L (22-30); Chloride 100 mmol/L (98-107); Estimated Creatinine Clearance 116 ml/min; Glucose 302 mg/dl (70-99); Potassium 5.6 mmol/L (3.5-5.1); Sodium 134 mmol/L (135-145); Total Protein 6.3 g/dl (6.3-8.2); eGFR > 60.00
[2025-07-23] MEDS: STERILE WATER FOR INJECTION 10 ML IV ×3 (11:48→23:14)
[2025-07-23] MEDS: MAXIPIME 1000 MG IV ×3 (11:48→23:14)
--- NOTE | 2025-07-23 12:33 | PTOTSP ---
The patient is independent with ambulation and mobility, offering no concerns regarding mobility upon return home. No PT needs identified at this time, will sign off.
--- NOTE | 2025-07-23 14:44 | PTCARENOTE ---
Pt. called to report feeling SOB and wanted to ambulate with pulse ox. Pt. 86-91% on RA during ambulation around unit x2. Pt. with c/o feeling weak and sob. Pt. placed on 2L NC and laid back in bed at this time resting comfortably. Will pass on to
oncoming shift RN.
--- NOTE | 2025-07-23 15:28 | W.PN.HOSP.TC ---
Today's Communication/Plan
-
abx
f/u cultures
med rec
incentive charly
Assessment / Plan
Assessment / Plan
Physical Exam
General: No Apparent Distress, Comfortable and Conversant
HEENT: NormoCephalic, Moist mucous membranes, Atraumatic and Other
Respiratory: Rales (at bases ) and Other (hypoxia requiring 2L nasal cannula); tachypneic
Cardiac: S1/S2 and Regular Rhythm; No Murmur or Rub
GI: Soft, Non Tender, Non Distended and Normal Bowel Sounds; No Organomegaly
Rectal: Deferred by Provider
Musculoskeletal: No Clubbing, No Cyanosis and No Edema
Skin: No Rash
Neuro: Awake, Alert and Nonfocal/grossly intact
Psych: Calm
#Acute hypoxic respiratory failure
� Secondary to multifocal pneumonia
� Continue antibiotics
� Follow cultures
� Incentive spirometer, Acapella
� No evidence of wheezing
� Wean O2 as tolerated, goal O2 greater than 92%
� Sputum cultures if expectorating
#Hyperkalemia
� Lokelma
� Monitor
#Hyponatremia
� Continue to monitor with resuscitation
# Pruritus, diffuse
� Improved
� Stop steroids
� Benadryl as needed
#Atrial fibrillation
� Eliquis?
-requires med rec
#Tobacco use
� Stop last year
� Half pack for over 30 years
� Continue inhalers
� Follow-up outpatient
#DVT ppx
Eliquis
Anticipated Discharge: 24 - 48 hours
Subjective/Interval History
-
Date of Service: July 23, 2025
feeling better, although still tachypneic
Objective Data
-
Labs:
Laboratory Results
07/23/25
08:39
WBC 6.3
Hgb 14.4
Hct 42.3
Plt Count 193
Sodium 134 L
Potassium 5.6 H D
Chloride 100
Carbon Dioxide 29
BUN 16
Creatinine 0.6 L
Glucose 302 H
Calcium 9.1
Total Bilirubin 0.4
AST 21
ALT 28
Alkaline Phosphatase 94
Vital Signs:
Vital Signs
Temp Pulse Resp BP Pulse Ox
98.2 F 85 26 106/66 97
07/23/25 15:12 07/23/25 15:12 07/23/25 15:12 07/23/25 15:12 07/23/25 15:12
I&O
07/22/25 07/23/25 07/24/25
06:59 06:59 06:59
Intake Total 240 / 240
Output Total 500 / 500 700 / 700
Balance -260 / -260 -700 / -700
Review of Systems
-
History Source: Patient
All other systems: Not reviewed unless documented
Data Reviewed
-
CT Scan: Report Reviewed by me
Labs: Labs Reviewed by me
--- NOTE | 2025-07-23 15:55 | PTCARENOTE ---
Obtained home med list from patient and added to chart. Provider notified.
--- NOTE | 2025-07-23 15:57 | PTCARENOTE ---
Assumed care of patient at 3pm. Patient now on 2L of 02. After ambulating pulse ox spot checked and he was 87% on RA. No other changes noted in assessment. Plan of care ongoing.
--- NOTE | 2025-07-23 16:12 | CM ---
IA completed. IMM given and placed on the chart. Pt is independent in ADLs and IADLs. Lives alone in a single story home with 1 step at the entrance to the home. No hx of HH,, SNF, home O2 or DME. NO insecurities identified. Confirmed PCP, Rx,
insurance, and drug coverage
PCP: Andrew Rosales
Rx: [facility]
Plan: Home, no needs
[2025-07-23] MEDS: LOKELMA 10 GRAM PO (16:49)
[2025-07-23] MEDS: DETROL LA 4 MG PO (18:26)
[2025-07-23] MEDS: FLOMAX 0.4 MG PO (18:27)
[2025-07-23] MEDS: TOPROL XL 50 MG PO (18:27)
[2025-07-23] MEDS: CRESTOR 40 MG PO (18:27)
[2025-07-23] MEDS: SYMBICORT 80/4.5 MCG INHALER 2 PUFF INH (19:59)
[2025-07-23] MEDS: SPIRIVA RESPIMAT 2.5 MCG 2 PUFF INH (19:59)
[2025-07-23] MEDS: ELIQUIS 5 MG PO (20:34)
[2025-07-23] MEDS: WELLBUTRIN SR (12 hour sustained release) 150 MG PO (20:34)
[2025-07-24 03:20] VITALS: BP 104/54
[2025-07-24] MEDS: MAXIPIME 1000 MG IV ×4 (06:15→23:05)
[2025-07-24] MEDS: STERILE WATER FOR INJECTION 10 ML IV ×4 (06:16→23:05)
[2025-07-24 07:42] LABS: Hematocrit 38.3 % (39.0-52.0); Hemoglobin 13.4 g/dL (13.0-18.0); Mean Corp Hgb Conc. 35.0 g/dL (33.0-37.0); Mean Corpuscular Volume 99.2 fL (80.0-94.0); Platelet Count 221 10^3/uL (130-400); Red Cell Dist. Width 12.0 % (11.5-14.5)
[2025-07-24] MEDS: ANESTHETIC LOZENGE 1 LOZENGE PO (07:45)
[2025-07-24 07:46] VITALS: BP 111/59
[2025-07-24] MEDS: TOPROL XL 50 MG PO (08:02)
[2025-07-24] MEDS: FARXIGA 10 MG PO (08:02)
[2025-07-24] MEDS: CRESTOR 40 MG PO (08:02)
[2025-07-24] MEDS: VIBRAMYCIN 100 MG PO ×2 (08:03→20:41)
[2025-07-24] MEDS: WELLBUTRIN SR (12 hour sustained release) 150 MG PO ×2 (08:03→20:41)
[2025-07-24] MEDS: DETROL LA 4 MG PO (08:03)
[2025-07-24] MEDS: MUCINEX 600 MG PO ×2 (08:03→20:40)
[2025-07-24] MEDS: LEXAPRO 20 MG PO (08:04)
[2025-07-24] MEDS: PROSCAR 5 MG PO (08:04)
[2025-07-24] MEDS: FLOMAX 0.4 MG PO (08:04)
[2025-07-24] MEDS: ELIQUIS 5 MG PO ×2 (08:04→20:40)
[2025-07-24] MEDS: SPIRIVA RESPIMAT 2.5 MCG 2 PUFF INH (08:08)
[2025-07-24] MEDS: SYMBICORT 80/4.5 MCG INHALER 2 PUFF INH ×2 (08:08→21:30)
[2025-07-24 08:21] LABS: ALT (SGPT) 25 U/L (0-50); AST (SGOT) 23 U/L (17-59); Albumin 3.3 g/dl (3.5-5.0); Alkaline Phosphatase 111 U/L (38-126); Blood Urea Nitrogen 19 mg/dl (9-20); Calcium 8.9 mg/dl (8.4-10.2); Carbon Dioxide 29 mmol/L (22-30); Chloride 99 mmol/L (98-107); Estimated Creatinine Clearance 116 ml/min; Glucose 452 mg/dl (70-99); Potassium 4.4 mmol/L (3.5-5.1); Sodium 130 mmol/L (135-145); Total Protein 5.9 g/dl (6.3-8.2); eGFR > 60.00
[2025-07-24 08:47] LABS: Glucose - Point of Care 559 mg/dl (70-99)
[2025-07-24] MEDS: NOVOLOG FLEXPEN 5 UNITS SC (09:03)
[2025-07-24 10:00] LABS: Glucose 476 mg/dl (70-99)
[2025-07-24 10:04] LABS: Glycohemoglobin (HgbA1c) 8.8 % (4.0-5.9)
[2025-07-24 10:08] LABS: Glucose - Point of Care 415 mg/dl (70-99)
[2025-07-24] MEDS: JANUVIA 50 MG PO (11:46)
[2025-07-24] MEDS: LR 1000 IV (11:46)
[2025-07-24 12:03] LABS: Glucose - Point of Care 405 mg/dl (70-99)
[2025-07-24 12:43] VITALS: BP 106/52
[2025-07-24 12:45] LABS: Glucose 361 mg/dl (70-99)
[2025-07-24] MEDS: NOVOLOG FLEXPEN-LOW RESISTANCE 5 UNITS SC (12:48)
[2025-07-24] MEDS: HYDROCORTISONE 1% CREAM 1 APPLIC TOPICAL ×2 (12:49→20:46)
--- NOTE | 2025-07-24 13:19 | W.PN.HOSP.TC ---
Addendum entered and electronically signed by Jose Burk MD 07/25/25 14:39:
[id number]
Original Note:
Today's Communication/Plan
-
abx
januvia
ivf
monitor glucose levels
aiss
incentive charly
Assessment / Plan
Assessment / Plan
Physical Exam
General: No Apparent Distress, Comfortable and Conversant
HEENT: NormoCephalic, Moist mucous membranes, Atraumatic and Other
Respiratory: Rales (at bases ) and Other (hypoxia requiring 2L nasal cannula); tachypneic
Cardiac: S1/S2 and Regular Rhythm; No Murmur or Rub
GI: Soft, Non Tender, Non Distended and Normal Bowel Sounds; No Organomegaly
Rectal: Deferred by Provider
Musculoskeletal: No Clubbing, No Cyanosis and No Edema
Skin: No Rash
Neuro: Awake, Alert and Nonfocal/grossly intact
Psych: Calm
#Acute hypoxic respiratory failure
� Secondary to multifocal pneumonia
� Continue antibiotics
� Follow cultures
� Incentive spirometer, Acapella
� No evidence of wheezing
� Wean O2 as tolerated, goal O2 greater than 92%, improving
� Sputum cultures if expectorating
#Hyperkalemia
� Lokelma
� Monitor
#Psuedohyponatremia
-2/2 to elevated glucose
#Hyperglycemia
-2/2 to acute illness and medrol taper that was dced
-a1c 8.8
-refuses metformin due to Gi side effects
-start januvia
-IVF PRN
-AISS
# Pruritus, diffuse
� Improved
� Stop steroids
-add topical steroids
� Benadryl as needed
#Atrial fibrillation
� Eliquis
-requires med rec
#Tobacco use
� Stopped last year
� Half pack for over 30 years
� Continue inhalers
� Follow-up outpatient
#DVT ppx
Eliquis
Anticipated Discharge: Within 24 hours
Subjective/Interval History
-
Date of Service: July 24, 2025
Resp status improved although patient very hyperglycemic
Objective Data
-
Labs:
Laboratory Results
07/24/25 07/24/25 07/24/25
06:42 09:10 12:13
WBC 8.3
Hgb 13.4
Hct 38.3 L
Plt Count 221
Sodium 130 L
Potassium 4.4
Chloride 99
Carbon Dioxide 29
BUN 19
Creatinine 0.6 L
Glucose 452 H* 476 H* 361 H
Calcium 8.9
Total Bilirubin 0.3
AST 23
ALT 25
Alkaline Phosphatase 111
Vital Signs:
Vital Signs
Temp Pulse Resp BP Pulse Ox
98.2 F 67 16 106/52 91
07/24/25 12:43 07/24/25 12:43 07/24/25 12:43 07/24/25 12:43 07/24/25 12:43
I&O
07/23/25 07/24/25 07/25/25
06:59 06:59 06:59
Intake Total 240 / 240 960 / 960
Output Total 500 / 500 700 / 700
Balance -260 / -260 260 / 260
Review of Systems
-
History Source: Patient
All other systems: Not reviewed unless documented
Data Reviewed
-
Diagnostic Radiology: Report Reviewed by me
CT Scan: Report Reviewed by me
Labs: Labs Reviewed by me
[2025-07-24 15:14] VITALS: BP 103/51
[2025-07-24 18:05] LABS: Glucose - Point of Care 158 mg/dl (70-99)
[2025-07-24] MEDS: NOVOLOG FLEXPEN-LOW RESISTANCE 1 UNITS SC (18:06)
[2025-07-24 19:32] VITALS: BP 113/52
[2025-07-24 21:26] LABS: Glucose - Point of Care 210 mg/dl (70-99)
[2025-07-24 23:34] VITALS: BP 121/65
[2025-07-25 03:33] VITALS: BP 109/53
[2025-07-25] MEDS: MAXIPIME 1000 MG IV (05:18)
[2025-07-25] MEDS: STERILE WATER FOR INJECTION 10 ML IV (05:19)
[2025-07-25 06:55] LABS: Hematocrit 37.5 % (39.0-52.0); Hemoglobin 12.8 g/dL (13.0-18.0); Mean Corp Hgb Conc. 34.1 g/dL (33.0-37.0); Mean Corpuscular Volume 100.0 fL (80.0-94.0); Platelet Count 225 10^3/uL (130-400); Red Cell Dist. Width 12.0 % (11.5-14.5)
[2025-07-25 07:59] LABS: Glucose - Point of Care 187 mg/dl (70-99)
[2025-07-25 08:00] VITALS: BP 117/65
[2025-07-25 08:02] LABS: ALT (SGPT) 33 U/L (0-50); AST (SGOT) 27 U/L (17-59); Albumin 3.2 g/dl (3.5-5.0); Alkaline Phosphatase 76 U/L (38-126); Blood Urea Nitrogen 17 mg/dl (9-20); Calcium 8.8 mg/dl (8.4-10.2); Carbon Dioxide 24 mmol/L (22-30); Chloride 101 mmol/L (98-107); Estimated Creatinine Clearance 116 ml/min; Glucose 185 mg/dl (70-99); Potassium 4.2 mmol/L (3.5-5.1); Sodium 133 mmol/L (135-145); Total Protein 5.8 g/dl (6.3-8.2); eGFR > 60.00
[2025-07-25] MEDS: SPIRIVA RESPIMAT 2.5 MCG 2 PUFF INH (08:30)
[2025-07-25] MEDS: SYMBICORT 80/4.5 MCG INHALER 2 PUFF INH (08:30)
[2025-07-25] MEDS: FARXIGA 10 MG PO (08:54)
[2025-07-25] MEDS: TOPROL XL 50 MG PO (08:55)
[2025-07-25] MEDS: MUCINEX 600 MG PO (08:55)
[2025-07-25] MEDS: PROSCAR 5 MG PO (08:55)
[2025-07-25] MEDS: NOVOLOG FLEXPEN-LOW RESISTANCE 1 UNITS SC (08:55)
[2025-07-25] MEDS: FLOMAX 0.4 MG PO (08:55)
[2025-07-25] MEDS: VIBRAMYCIN 100 MG PO (08:55)
[2025-07-25] MEDS: CRESTOR 40 MG PO (08:55)
[2025-07-25] MEDS: DETROL LA 4 MG PO (08:55)
[2025-07-25] MEDS: ELIQUIS 5 MG PO (08:55)
[2025-07-25] MEDS: LEXAPRO 20 MG PO (08:55)
[2025-07-25] MEDS: JANUVIA 50 MG PO (08:55)
[2025-07-25] MEDS: WELLBUTRIN SR (12 hour sustained release) 150 MG PO (08:55)
[2025-07-25] MEDS: HYDROCORTISONE 1% CREAM 1 APPLIC TOPICAL (08:57)
[2025-07-25] MEDS: OMNICEF 300 MG PO (11:37)
[2025-07-25 11:44] VITALS: BP 101/46
[2025-07-25 12:03] LABS: Glucose - Point of Care 324 mg/dl (70-99)
[2025-07-25] MEDS: NOVOLOG FLEXPEN-LOW RESISTANCE 4 UNITS SC (12:18)
--- NOTE | 2025-07-25 15:54 | CM ---
F/U: Patient discharge no needs, left prior to signing IMM. PLAN: Home No Needs
== END 2025-07-25 15:29 | disposition home or self-care (01) | DRG 193 ==
LOC: 4 EAST ACU 22:54
PROVIDERS: Emergency Medicine; ADMITTING PHYSICIAN Internal Medicine; ATTENDING PHYSICIAN Internal Medicine; EMERGENCY PHYSICIAN Emergency Medicine; FAMILY PHYSICIAN Nurse Practitioner Family
DX: J18.1 Lobar pneumonia, unspecified organism (principal); J96.01 Acute respiratory failure with hypoxia; E87.1 Hypo-osmolality and hyponatremia; J90 Pleural effusion, not elsewhere classified; F17.200 Nicotine dependence, unspecified, uncomplicated; Z11.52 Encounter for screening for COVID-19; Z79.01 Long term (current) use of anticoagulants; I48.91 Unspecified atrial fibrillation; E87.5 Hyperkalemia; L29.9 Pruritus, unspecified; L27.0 Generalized skin eruption due to drugs and medicaments taken internally
CPT/HCPCS: 71275; 80053; 82947; 82962; 83036; 83605; 85025; 85027; 87040; 87070; 87205; 87502; 87811; 93005; 93288; 94640; 94760; 96365; 96375; 97162; 99285; 99406; Q9967

== ENCOUNTER → 2025-07-29 15:50 | Outpatient (REF) | payer MEDICARE, OTHER, SELFPAY ==
[2025-07-29 17:10] LABS: Hematocrit 43.7 % (39.0-52.0); Hemoglobin 14.3 g/dL (13.0-18.0); Mean Corp Hgb Conc. 32.7 g/dL (33.0-37.0); Mean Corpuscular Volume 103.6 fL (80.0-94.0); Nucleated Red Blood Cells % 0 % (-); Platelet Count 307 10^3/uL (130-400); Red Cell Dist. Width 12.2 % (11.5-14.5)
[2025-07-29 17:38] LABS: ALT (SGPT) 31 U/L (0-50); AST (SGOT) 24 U/L (17-59); Albumin 4.2 g/dl (3.5-5.0); Alkaline Phosphatase 96 U/L (38-126); Blood Urea Nitrogen 17 mg/dl (9-20); Calcium 9.6 mg/dl (8.4-10.2); Carbon Dioxide 25 mmol/L (22-30); Chloride 103 mmol/L (98-107); Glucose 154 mg/dl (70-99); Potassium 4.8 mmol/L (3.5-5.1); Sodium 136 mmol/L (135-145); Total Protein 7.3 g/dl (6.3-8.2); eGFR > 60.00
== END ==
LOC: REG 15:50
PROVIDERS: ATTENDING PHYSICIAN Nurse Practitioner Family
DX: Z51.89 Encounter for other specified aftercare (principal); J18.9 Pneumonia, unspecified organism; E11.65 Type 2 diabetes mellitus with hyperglycemia; E11.9 Type 2 diabetes mellitus without complications
CPT/HCPCS: 36415; 80053; 85025

== ENCOUNTER → 2025-08-04 11:55 | Outpatient (REF) | payer MEDICARE, OTHER, SELFPAY | LOC: RAD 11:55 | PROVIDERS: ATTENDING PHYSICIAN Nurse Practitioner Family | DX: R06.02 Shortness of breath (principal) | CPT/HCPCS: 71046 ==

== ENCOUNTER → 2025-08-09 14:30 | Outpatient (REF) | payer MEDICARE, OTHER, SELFPAY | LOC: RAD 14:30 | PROVIDERS: ATTENDING PHYSICIAN Nurse Practitioner Family | DX: J18.9 Pneumonia, unspecified organism (principal); Z72.0 Tobacco use | CPT/HCPCS: 71250 ==

== ENCOUNTER 2025-08-13 23:49 | Inpatient (IN) | payer MEDICARE, OTHER, SELFPAY ==
[2025-08-13] VITALS (7 sets, daily range): BP systolic 110–148; BP diastolic 66–84; O2SAT 89
[2025-08-13 20:02] LABS: Glucose - Point of Care 302 mg/dl (70-99)
[2025-08-13] MEDS: NSS 1000 IV (20:26)
[2025-08-13 20:39] LABS: Hematocrit 42.1 % (39.0-52.0); Hemoglobin 14.5 g/dL (13.0-18.0); Mean Corp Hgb Conc. 34.4 g/dL (33.0-37.0); Mean Corpuscular Volume 97.5 fL (80.0-94.0); Nucleated Red Blood Cells % 0 % (-); Platelet Count 147 10^3/uL (130-400); Red Cell Dist. Width 12.8 % (11.5-14.5)
[2025-08-13 20:54] LABS: ALT (SGPT) 17 U/L (0-50); AST (SGOT) 17 U/L (17-59); Albumin 3.9 g/dl (3.5-5.0); Alkaline Phosphatase 80 U/L (38-126); Blood Urea Nitrogen 23 mg/dl (9-20); Calcium 9.4 mg/dl (8.4-10.2); Carbon Dioxide 26 mmol/L (22-30); Chloride 102 mmol/L (98-107); Glucose 287 mg/dl (70-99); Potassium 3.8 mmol/L (3.5-5.1); Sodium 134 mmol/L (135-145); Total Protein 6.9 g/dl (6.3-8.2); eGFR > 60.00
[2025-08-13 21:07] LABS: Troponin I < 0.012 ng/ml
--- NOTE | 2025-08-13 22:35 | ED.GENMED ---
History of Present Illness
<Katy Sarkar NP - Last Filed: 08/16/25 19:13>
General
Chief Complaint: Breathing Problem
Source: patient
Exam Limitations: none
Time Seen by Provider: 08/13/25 20:07
Nursing documentation reviewed up to this point in time: agreed with
History of Present Illness
History of Present Illness:
Patient to the emergency department with complaint of increasing shortness of breath. Patient was discharged from here on 07/25 after admission for acute hypoxic respiratory failure secondary to multifocal pneumonia. he had failed outpatient
treatment for his pneumonia. He was treated with IV antibiotics during his admission and eventually transitioned over to doxycycline and cefdinir. He had a follow-up CT performed on 08/09 which showed multifocal pneumonia most pronounced in the
left lower lobe slightly improved from prior underlying malignancy cannot be excluded. Dyspnea, hypoxia, activity intolerance continue to worsen. He was advised by his PCP to come to the emergency department for evaluation. On arrival to ED
patient is awake and alert. Pulse ox 92% on room air. History of cigarette smoking. States he quit approximately 2 months ago,/ ppd.
Past History
<Katy Sarkar NP - Last Filed: 08/16/25 19:13>
Past History
ED Past Medical History: Arrthythmia (atrial fibrillation), COPD and NIDDM
ED Past Surgical History: Cardiac (Ablation X 2), Orthopedic (Neck fusion, ) and Urological (Prostate Surgery just 2 weeks ago from 10/17/23)
Social History
Tobacco: Smoker
Alcohol: Daily (Wine 2 glasses)
Personal: Single
Living: alone
Employment: Employed
Review of Systems
<Katy Sarkar VETERINARY SURGERY TECHNOLOGIST - Last Filed: 08/16/25 19:13>
Review of Systems
Constitutional: Reports no symptoms
EENT: Reports no symptoms
Respiratory: Reports cough and trouble breathing
Cardiac: Reports no symptoms
ABD/GI: Reports no symptoms
: Reports no symptoms
Musculoskeletal: Reports no symptoms
Skin: Reports no symptoms
Neurological: Reports no symptoms
Psychiatric: Reports no symptoms
Phy Exam
<Katy Sarkar VETERINARY SURGERY TECHNOLOGIST - Last Filed: 08/16/25 19:13>
General Physical Exam
General Presentation: mild distress
General age: appears stated age
General Skin: warm and dry
General Habitus: normal
General Mental: alert
Cardiovascular Exam
Cardiovascular Exam: regular rate/rhythm and no edema
Pulmonary Exam
Pulmonary Exam: lungs clear
Oxygen Status: oxygen 4 liters via NC
Cough: coarse cough
Gastrointestinal Exam
Gastrointestinal Exam: normal bowel sounds, non tender and soft
Musculoskeletal Exam
Musculoskeletal Exam: full ROM and neuro vasc intact
Skin Exam
Skin Exam: normal color, warm/dry and no rash
Psychiatric Exam
Psychiatric Exam: normal mood/affect
Scores
<Katy Sarkar VETERINARY SURGERY TECHNOLOGIST - Last Filed: 08/16/25 19:13>
Heart Failure Risk
Heart Failure Risk Score: Not Applicable
Course
<Katy Sarkar VETERINARY SURGERY TECHNOLOGIST - Last Filed: 08/16/25 19:13>
Orders/Labs/Results
Orders:
Orders
08/13/25 19:11
Electrocardiogram (*1) Urgent
Reason for Study: Shortness of Breath
EKG- Treatment ONCE
08/13/25 20:15
CT Chest PE Study Urgent
Comment:
Reason For Exam: hypoxia, chest pain, SOB
08/13/25 20:16
0.9% Sodium Chloride 1000 ml [Nss] 1,000 ml IV BOLUS
08/13/25 20:28
Complete Blood Count/With Diff Urgent
Comprehensive Metabolic Panel Urgent
Troponin I Urgent
08/13/25 22:57
Cefepime HCl [Maxipime] 2,000 mg IV NOW STA
Doxycycline [Vibramycin] 100 mg PO NOW STA
08/13/25 23:34
Admit/Transfer Patient As Directed
Co-Sign Provider:
Level of Care: Inpatient admission
Assign to:: Medical/Surgical
Physician / Group: [facility]
Diagnosis: acute bronchitis
Reason for Hospitalization: acute bronchitis
Expected length of stay greater than two midnights?: Yes
ELOS- Estimated Length of Stay in days: 3
I certify the patient meets the requirements for IP care: Yes
08/13/25 23:35
PRN Pain Medication Management As Directed
May give lesser potent ordered pain med per pt: Yes
preference::
Protocol:: Medication orders for pain may be administered in a
manner that supports deferring to patient preference
when the pt is:
- Requesting an ordered lesser potent pain medication.
Least to most potent pain medications are defined
as: acetaminophen < NSAID < tramadol < opioids
(morphine, oxycodone, hydromorphone).
- Requesting a lesser dose of the same medication IF
ORDERED.
- Requesting a less intrusive route of administration
if both routes are prescribed by the provider (PO <
IV).
08/13/25 23:36
Code Status As Directed
Resuscitation Status: Full Code
08/14/25 00:26
Acetaminophen [Tylenol] 650 mg PO Q4HPRN PRN
Bisacodyl [Dulcolax] 10 mg RECTAL [id number] PRN
Dextrose 50%-Water [Dextrose 50% Syringe] 12.5 grams IV [id number] PRN
Docusate W/Senna [Senokot-S] 1 tablet PO BIDPRN PRN
Glucagon [GlucaGen] 1 mg IM PRN PRN
Guaifenesin [Mucinex] 600 mg PO Q12 PRN
Ipratropium/Albuterol Sulfate [Duoneb] 3 ml INH R Q4HPRN PRN
Polyethylene Glycol Powder [Miralax] 17 grams PO DAILYPRN PRN
08/14/25 00:26
Consult Notification Routine
Specialty to Notify: Pulmonary
Date consulting provider notified: 08/14/25
Time consulting provider notified: 08:54
Notified:: Provider
PULMONARY CONSULT Routine
Consulting Provider: Miguel Mcfarland
Was physician already notified: No
Reason for consult: sob,cough
Activity As Directed
Activity Level: As Tolerated
Bedside Glucose Monitoring As Directed
Frequency: AC&HS
Additional Instructions:: Change to q6h if pt on TPN, tube feeding or not eating
Nursing to Place Non Medication Order As Directed
Physician Order: please complete med rec. thanks
Above order entered?: Yes
Vital Signs As Directed
Frequency: Per unit guidelines
08/14/25 00:29
Urine Osmolality Random [Osmolality, Random Urine] Routine
Date Specimen was Collected: 08/14/25
Time Specimen was Collected: 00:27
Urine Sodium Routine
Date Specimen was Collected: 08/14/25
Time Specimen was Collected: 00:27
08/14/25 Breakfast
2200 calorie (18 carb) Diabetic
At Your Request: Full Participation
Fluid Restriction: 1200 mL/day (40 oz)
08/14/25 06:25
Basic Metabolic Panel IN AM
Complete Blood Count/No Diff IN AM
08/14/25 07:30
Insulin Aspart Corrective Low [Novolog Flexpen-Low Resistance] See Protocol SC AC
08/14/25 08:00
Apixaban [Eliquis] 5 mg PO BID
Abnormal Lab Results
08/13/25 08/13/25
20:01 20:28
RBC 4.32 L 10^6/uL
(4.70-6.10)
MCV 97.5 H fL
(80.0-94.0)
MCH 33.6 H pg
(27.0-31.0)
Absolute Monos (auto) 0.8 H 10^3/uL
(0.1-0.6)
Lymphocytes % 17.7 L %
(20.5-51.1)
Monocytes % 10.2 H %
(1.7-9.3)
Sodium 134 L mmol/L
(135-145)
BUN 23 H mg/dl
(9-20)
Glucose 287 H mg/dl
(70-99)
POC Glucose 302 H mg/dl
(70-99)
08/13/25 20:28
08/13/25 20:28
Vital Signs
Initial and Last Documented VS:
Initial Vital Signs
Temp Resp BP
98.8 F 16 110/79
08/13/25 19:07 08/13/25 19:07 08/13/25 19:07
Last Documented Vital Signs
Temp Pulse Resp BP Pulse Ox
98.7 F 62 17 113/54 94
08/14/25 15:00 08/14/25 15:00 08/14/25 15:00 08/14/25 15:00 08/14/25 15:00
<Steve Underwood, DO - Last Filed: 08/13/25 23:27>
Orders/Labs/Results
Orders:
Orders
08/13/25 19:11
Electrocardiogram (*1) Urgent
Reason for Study: Shortness of Breath
EKG- Treatment ONCE
08/13/25 20:15
CT Chest PE Study Urgent
Comment:
Reason For Exam: hypoxia, chest pain, SOB
08/13/25 20:16
0.9% Sodium Chloride 1000 ml [Nss] 1,000 ml IV BOLUS
08/13/25 20:28
Complete Blood Count/With Diff Urgent
Comprehensive Metabolic Panel Urgent
Troponin I Urgent
08/13/25 22:57
Cefepime HCl [Maxipime] 2,000 mg IV NOW STA
Doxycycline [Vibramycin] 100 mg PO NOW STA
08/13/25 23:34
Admit/Transfer Patient As Directed
Co-Sign Provider:
Level of Care: Inpatient admission
Assign to:: Medical/Surgical
Physician / Group: [facility]ell
Diagnosis: acute bronchitis
Reason for Hospitalization: acute bronchitis
Expected length of stay greater than two midnights?: Yes
ELOS- Estimated Length of Stay in days: 3
I certify the patient meets the requirements for IP care: Yes
08/13/25 23:35
PRN Pain Medication Management As Directed
May give lesser potent ordered pain med per pt: Yes
preference::
Protocol:: Medication orders for pain may be administered in a
manner that supports deferring to patient preference
when the pt is:
- Requesting an ordered lesser potent pain medication.
Least to most potent pain medications are defined
as: acetaminophen < NSAID < tramadol < opioids
(morphine, oxycodone, hydromorphone).
- Requesting a lesser dose of the same medication IF
ORDERED.
- Requesting a less intrusive route of administration
if both routes are prescribed by the provider (PO <
IV).
08/13/25 23:36
Code Status As Directed
Resuscitation Status: Full Code
08/14/25 00:26
Acetaminophen [Tylenol] 650 mg PO Q4HPRN PRN
Bisacodyl [Dulcolax] 10 mg RECTAL [id number] PRN
Dextrose 50%-Water [Dextrose 50% Syringe] 12.5 grams IV [id number] PRN
Docusate W/Senna [Senokot-S] 1 tablet PO BIDPRN PRN
Glucagon [GlucaGen] 1 mg IM PRN PRN
Guaifenesin [Mucinex] 600 mg PO Q12 PRN
Ipratropium/Albuterol Sulfate [Duoneb] 3 ml INH R Q4HPRN PRN
Polyethylene Glycol Powder [Miralax] 17 grams PO DAILYPRN PRN
08/14/25 00:26
Consult Notification Routine
Specialty to Notify: Pulmonary
Date consulting provider notified: 08/14/25
Time consulting provider notified: 08:54
Notified:: Provider
PULMONARY CONSULT Routine
Consulting Provider: Miguel Mcfarland
Was physician already notified: No
Reason for consult: sob,cough
Activity As Directed
Activity Level: As Tolerated
Bedside Glucose Monitoring As Directed
Frequency: AC&HS
Additional Instructions:: Change to q6h if pt on TPN, tube feeding or not eating
Nursing to Place Non Medication Order As Directed
Physician Order: please complete med rec. thanks
Above order entered?: Yes
Vital Signs As Directed
Frequency: Per unit guidelines
08/14/25 00:29
Urine Osmolality Random [Osmolality, Random Urine] Routine
Date Specimen was Collected: 08/14/25
Time Specimen was Collected: 00:27
Urine Sodium Routine
Date Specimen was Collected: 08/14/25
Time Specimen was Collected: 00:27
08/14/25 Breakfast
2200 calorie (18 carb) Diabetic
At Your Request: Full Participation
Fluid Restriction: 1200 mL/day (40 oz)
08/14/25 06:25
Basic Metabolic Panel IN AM
Complete Blood Count/No Diff IN AM
08/14/25 07:30
Insulin Aspart Corrective Low [Novolog Flexpen-Low Resistance] See Protocol SC AC
08/14/25 08:00
Apixaban [Eliquis] 5 mg PO BID
Abnormal Lab Results
08/13/25 08/13/25
20:01 20:28
RBC 4.32 L 10^6/uL
(4.70-6.10)
MCV 97.5 H fL
(80.0-94.0)
MCH 33.6 H pg
(27.0-31.0)
Absolute Monos (auto) 0.8 H 10^3/uL
(0.1-0.6)
Lymphocytes % 17.7 L %
(20.5-51.1)
Monocytes % 10.2 H %
(1.7-9.3)
Sodium 134 L mmol/L
(135-145)
BUN 23 H mg/dl
(9-20)
Glucose 287 H mg/dl
(70-99)
POC Glucose 302 H mg/dl
(70-99)
08/13/25 20:28
08/13/25 20:28
Vital Signs
Initial and Last Documented VS:
Initial Vital Signs
Temp Resp BP
98.8 F 16 110/79
08/13/25 19:07 08/13/25 19:07 08/13/25 19:07
Last Documented Vital Signs
Temp Pulse Resp BP Pulse Ox
98.7 F 62 17 113/54 94
08/14/25 15:00 08/14/25 15:00 08/14/25 15:00 08/14/25 15:00 08/14/25 15:00
Marvinlt;Katy Sarkar NP - Last Filed: 08/16/25 19:13>
*Radiology
Radiology exam reviewed: radiology read reviewed
*Pulse Oximetry
SaO2: 91
Oxygen Mode of Delivery: Room air
Patient hypoxic: no
*Critical Care Note
Total Time (30-74mins, 75-104mins- exclusive of procedures): Not Applicable
<Katy Sarkar NP - Last Filed: 08/16/25 19:13>
Update Note
Update Note:
Patient to the emergency department with complaint of worsening shortness of breath, hypoxia, activity intolerance. He was discharged from here on 07/25 after admission for multifocal pneumonia, respiratory failure. He received IV antibiotics and
eventually transitioned over to oral antibiotics and discharged home. Follow-up CT on 122 completed. Patient still with multi focal pneumonia at that time, most pronounced on the left lower lobe. Slightly improved from prior. Sent by his PCP to
ED today for worsening symptoms. Vital signs are stable and he remains afebrile. Pulse ox remains 92 to 95% while at rest. Pulse ox drops to 89% with minimal activity. He becomes dyspneic and tachypneic with minimal activity. CT completed
tonight. No evidence of PE. Bibasilar pneumonia noted, left greater than right. No significant interval change. He has mild emphysema. Labs reviewed. WBC 8.0. Glucose 287 noted. Case discussed with Dr. Underwood. Patient will be admitted to
the hospitalist for bibasilar pneumonia,hypoxemia. He was improved iwth cefepime and doxycycline during prior admission, will initiate tonight.
ED Attending Note
<Katy Sarkar NP - Last Filed: 08/16/25 19:13>
-
Portions of this chart may have been created with voice recognition software.� Occasional wrong word or��sound alike� substitutions may have occurred due to the inherent limitations of voice recognition software.
<Steve Underwood, - Last Filed: 08/13/25 23:27>
ED Attending Note
Patient seen and examined by attending physician: Yes
ED Attending Note:
I have reviewed and agree with history treatment plan by Katy Sarkar. My exam revealed 69-year-old male with rhonchi at bases. Oxygen desaturation upon ambulation. Patient with persistent bilateral basilar pneumonia. Treat with cefepime.
Admit to hospitalist.
Discharge Plan
Departure
Patient Disposition: Admit
Date of Disposition: 08/13/25
Time of Disposition: 22:48
Presentation/result/management discussed w/ accepting MD/DO: Hospitalist
Condition: Fair
Covid-19: Not Applicable
Discharge Problem:
Pneumonia, Hypoxemia
Interventions
Interventions:
*General Assessment Last Done: 08/13/25 19:09
*Neglect/Abuse Screening Last Done: 08/13/25 19:09
*ED COVID-19 Vaccine History Last Done: 08/14/25 01:15
*ED Influenza Vaccine History Last Done: 08/13/25 19:09
[facility] Fall Risk Assessment Tool Last Done: 08/13/25 19:03
*Risk Screen - Suicide (C-SSRS) Last Done: 08/13/25 19:09
*Nursing Disposition Last Done: 08/14/25 02:15
ED- Cardiac Assessment Last Done: 08/13/25 19:45
ED- Pulmonary Assessment Last Done: 08/13/25 19:45
Discharge Date and Time
Discharge Date/Time: 08/14/25 02:19
--- NOTE | 2025-08-13 23:01 | HPS.HSE ---
Addendum entered and electronically signed by Demond Zuniga DO 08/13/25 23:51:
Patient seen and examined independently. Agree with findings and plan as set forth by PIEDAD Walden.
Patient is a 69y M with PMH significant for hypertension, DM-II and A-Fib who presents to ED complaining of SOB. Patient reports that he has been sick for about 4 weeks. He was on outpatient abx (Augmentin and Azithro) and then hospitalized on
07/22 when his symptoms did not improve. CT at that time showed bibasilar pneumonia. He was treated with IV abx and discharged on cefdinir and doxycycline. His symptoms continued to persist and he as most recently placed on levofloxacin by his
PCP. He completed this course [address] scan done as an outpatient showed persistent bibasilar infiltrates (08/09). Repeat CT today shows no significant change.
Patient complains of intermittent dyspnea with activity. No significant fevers, chills, cough, etc.
Yesterday he notes that he felt 'great'. Today he felt extremely short of breath with activity and returned to the ED for further evaluation.
Ass:
Dyspnea on Exertion / Exertional Hypoxemia
Abnormal CT Chest
DM-II, Uncontrolled
Benign Hypertension
Paroxysmal Atrial Fibrillation
Hyponatremia
Plan:
Admit for further evaluation and treatment.
Would observe off of additional abx for now given failure of multiple courses thus far and non-toxic appearance of patient.
Pulmonary evaluation for additional recommendations.
Supportive care with nebs, O2 support as needed, etc.
Continue / resume usual outpatient meds including DM regimen, Eliquis, etc.
Fluid restriction for hyponatremia. Check urine studies. Suspect ADH excess secondary to pulmonary process.
Significant tobacco history and concern for underlying malignancy given persistent symptoms despite multiple courses of abx.
Original Note:
Family Physician
-
Family Physician: PIEDAD Carter
Chief Complaint
-
cough, sob
History of Present Illness
69 year old with PMH for DM, HTN, atrial fib s/p ablation, pneumonia presented to us with worsening sob and cough. the cough is non productive. sob with exertion.patient stated the symptoms started 3.5 weeks ago. he was prescribed oral abx with no
improvement. patient was admitted here on iv abx and discharged on doxycycline with some improvement in his symptoms.but started feel worse again with dry cough and sob. patient was prescribed Levaquin and all his DM meds were stopped by his PCP. he
finished the course of Levaquin 2 days ago. his PCP repeated his CT with impression of pneumonia, and asked him to go the ER.denied ALFONSO, dizzy or syncope.denied fever, chills, chest pain. denied abdominal pain,n,v,d. denied dysuria or hematuria. he
lost about 10lbs in 3-[address] in ER with pneumonia. recived cefpime and doxy in Er. admitting for further management.
Medical History
Past Medical History
Past Medical History: Reports Other
Additional Past Medical History:
DM, pacemaker, HTN, atrial fib, pneumonia, spinal fusion, cervical fusion, bronchitis, pneumonia
Past Surgical History: Reports Other
Social History
Tobacco: Non-smoker (quit 4 weeks ago)
Alcohol: Occasional
Drug: None
Family History
Family History: Not pertinent
Allergies / Home Medications
Allergies reflects when Allergies were last updated in [email or web address].
Home Medications with original date entered in [email or web address]
Allergy/Medication List:
Allergies
Allergy/AdvReac Type Severity Reaction Status Date / Time
diazepam (From Valium) Allergy Unknown Verified 10/17/23 22:06
metformin Allergy Unknown Verified 07/23/25 15:47
Home Medications
albuterol sulfate 90 mcg/actuation aerosol inhaler 2 puff inhalation R Q6HPRN PRN sob 07/23/25
alprazolam 2 mg tablet (Xanax) 1 mg PO HSPRN PRN sleep 07/23/25
apixaban 5 mg tablet (Eliquis) 5 mg PO BID Heart Disease/Condition 07/23/25
bupropion HCl 150 mg tablet,12 hr sustained-release 150 mg PO BID Mental Health/Anxiety 07/23/25
empagliflozin 25 mg tablet (Jardiance) 25 mg PO DAILY Diabetes 07/23/25
escitalopram oxalate 20 mg tablet (Lexapro) 20 mg PO DAILY Mental Health/Anxiety 07/23/25
finasteride 5 mg tablet 5 mg PO DAILY Urinary Issue 07/23/25
fluticasone fur. 100 mcg-umeclid 62.5 mcg-vilant 25 mcg inhalat.powder (Trelegy Ellipta) 1 inh inhalation R DAILY Lung/Breathing Issues 07/23/25
lansoprazole 30 mg capsule,delayed release 30 mg PO DAILYPRN PRN gerd 07/23/25
metoprolol succinate 50 mg tablet,extended release 24 hr (Toprol XL) 50 mg PO DAILY Heart Disease/Condition 07/23/25
rosuvastatin 40 mg tablet 40 mg PO DAILY High Cholesterol 07/23/25
semaglutide 1 mg/dose (4 mg/3 mL) subcutaneous pen injector (Ozempic) 1 mg SC GRIER Diabetes 07/23/25
tamsulosin 0.4 mg capsule 0.4 mg PO DAILY Urinary Issue 07/23/25
vibegron 75 mg tablet (Gemtesa) 75 mg PO DAILY Urinary Issue 07/23/25
cefdinir 300 mg capsule 300 mg PO Q12H 5 days #10 caps 07/25/25
doxycycline hyclate 100 mg capsule 100 mg PO Q12 3 days #6 caps 07/25/25
sitagliptin phosphate 50 mg tablet (Januvia) 50 mg PO DAILY 30 days #30 tabs 07/25/25
Review of Systems
-
Constitutional: Reports No Symptoms
EENT: Reports No Symptoms
Respiratory: Reports Cough and Trouble Breathing
Cardiac: Reports No Symptoms
Abdomen/GI: Reports No Symptoms
: Reports No Symptoms
Musculoskeletal: Reports No Symptoms
Skin: Reports No Symptoms
Neurological: Reports No Symptoms
Endocrine: Reports No Symptoms
Hematologic/Lymphatic: Reports No Symptoms
Psych: Reports No Symptoms
Physical Exam
Vital Signs
Vital Signs
Temp Pulse Resp BP Pulse Ox
98.8 F 83 26 110/73 91
08/13/25 19:07 08/13/25 22:30 08/13/25 22:30 08/13/25 22:00 08/13/25 22:45
Physical Exam
General: Well Developed, Well Nourished and No Apparent Distress
HEENT: NormoCephalic, Moist mucous membranes and Atraumatic
Respiratory: Clear
Cardiac: S1/S2 and Regular Rhythm; No Murmur or Rub
GI: Soft, Non Tender, Non Distended and Normal Bowel Sounds; No Organomegaly
Rectal: Deferred by Provider
Musculoskeletal: No Clubbing, No Cyanosis and No Edema
Skin: No Rash
Neuro: AO x 3 and Nonfocal/grossly intact
Psych: Calm
Laboratory Results
-
08/13/25 20:28
08/13/25 20:28
Laboratory Results
Total Bilirubin 0.6 mg/dl (0.2-1.3) 08/13/25 20:28
AST 17 U/L (17-59) 08/13/25 20:28
ALT 17 U/L (0-50) 08/13/25 20:28
Alkaline Phosphatase 80 U/L (38-126) 08/13/25 20:28
Troponin I < 0.012 ng/ml 08/13/25 20:28
Data Reviewed
-
CT Scan: Report Reviewed by me
Lab Data: Labs Reviewed by me
Impression/Plan
-
#sob/cough concern for Bronchitis vs pneumonia
-deferred abx.
-Mucinex for cough
-Tylenol prn for fever
-nebs for sob/wheezing
-pulmonary consulted.
-chest CT with No evidence of pulmonary embolism.Pulmonary artery branching order level of the most proximal pulmonary embolism: N/A Bibasilar pneumonia, left greater than right, without significant interval change.Mild emphysema.If the patient has
emphysema, patient should be assessed for an annual low dose lung cancer CT program, as pulmonary emphysema is an independent risk factor for lung cancer.
#Hyperglycemia/type 2 DM
-did not take meds for 6 days
-sliding scale
-cho diet.
#Atrial fibrillation
� Eliquis
#Tobacco use
� Stopped3 weeks ago
#hyponatremia
-fluid restriction
#DVT Prophylaxis
-Lovenox
#CODE status
-full code
patient not sure of medication, please complete the med rec once available.
[2025-08-14 00:22] VITALS: BP 133/72
[2025-08-14 02:17] VITALS: BP 99/58
[2025-08-14 02:19] VITALS: BMI 22.1
--- NOTE | 2025-08-14 02:48 | PTCARENOTE ---
Pt admitted from ED. AAOx3. Denies pain. Pt afebrile, VSS. Bed in lowest position. Call cardoza within reach.
[2025-08-14 02:52] VITALS: BP 121/61
[2025-08-14 06:49] LABS: Hematocrit 39.0 % (39.0-52.0); Hemoglobin 13.4 g/dL (13.0-18.0); Mean Corp Hgb Conc. 34.4 g/dL (33.0-37.0); Mean Corpuscular Volume 99.2 fL (80.0-94.0); Platelet Count 145 10^3/uL (130-400); Red Cell Dist. Width 12.5 % (11.5-14.5)
[2025-08-14 07:00] VITALS: BP 112/60
[2025-08-14 07:13] LABS: Blood Urea Nitrogen 17 mg/dl (9-20); Calcium 9.0 mg/dl (8.4-10.2); Carbon Dioxide 25 mmol/L (22-30); Chloride 106 mmol/L (98-107); Estimated Creatinine Clearance 98 ml/min; Glucose 221 mg/dl (70-99); Potassium 3.7 mmol/L (3.5-5.1); Sodium 136 mmol/L (135-145); eGFR > 60.00
[2025-08-14 08:29] LABS: Glucose - Point of Care 182 mg/dl (70-99)
[2025-08-14] MEDS: NOVOLOG FLEXPEN-LOW RESISTANCE SC (08:38)
[2025-08-14] MEDS: LEXAPRO 20 MG PO (08:39)
[2025-08-14] MEDS: WELLBUTRIN SR (12 hour sustained release) 150 MG PO (08:39)
[2025-08-14] MEDS: FLOMAX 0.4 MG PO (08:39)
[2025-08-14] MEDS: ELIQUIS 5 MG PO (08:39)
[2025-08-14] MEDS: TOPROL XL 50 MG PO (08:39)
[2025-08-14] MEDS: PROSCAR 5 MG PO (08:39)
[2025-08-14 08:55] VITALS: BMI 22.1
[2025-08-14] MEDS: DUONEB 3 ML INH (09:01)
--- NOTE | 2025-08-14 11:39 | W.PN.HOSP.TC ---
Addendum entered and electronically signed by Efra Gupta MD 08/14/25 16:24:
Total time spent on d/c = 37 min. This included today's physical exam, progress note, review of laboratory and diagnostic data, preparation of discharge documents and prescriptions, and discussions about the pt's hospital course and discharge plan
with the patient and other quality engineer medical device involved in the patient's care.
Original Note:
Today's Communication/Plan
-
d/c after seen by pulm
Assessment / Plan
Assessment / Plan
Gen: NAD, AAOx3.
Eyes: EOMI, PERRLA, no scleral icterus.
Neck: supple.
CV: RRR, +S1/S2, no m/r/g.
Resp: CTAB, no rales, wheezes, or rhonchi.
Skin: No rashes.
Neuro: CN 2-12 intact, non-focal.
Psych: Normal mood and affect.
CTA chest: No PE. Pulmonary artery branching order level of the most proximal pulmonary embolism: N/A. Bibasilar pneumonia, left greater than right, without significant interval change. Mild emphysema.
Dyspnea on exertion/exertional hypoxemia:
-CTA chest above
-prior courses of abx, no indication for abx at this time
-was on 2L NC O2, now 92% RA. With an extensive smoking history the patient surely has COPD. He will need pulmonary function testing as an outpatient. Regarding expectation management I would expect that at times the patient will have shortness
of breath. Currently he is not tachypneic and able to speak in full sentences. He currently is not hypoxemic. The patient can follow-up with pulmonary in the outpatient setting but states he needs to see pulmonary before he leaves.
Other problems:
DM2: SSI/accuchecks. Resume Jardiance/Januvia.
Essential HTN: cont BB
Paroxysmal Afib: cont BB/Eliquis
Hyponatremia, resolved
Tobacco abuse disorder, quit 3 weeks prior to admission
FULL/Lovenox
Anticipated Discharge: Today
Subjective/Interval History
-
Date of Service: August 14, 2025
Currently denies SOB.
Objective Data
-
Labs:
Laboratory Results
08/14/25
06:25
WBC 8.4
Hgb 13.4
Hct 39.0
Plt Count 145
Sodium 136
Potassium 3.7
Chloride 106
Carbon Dioxide 25
BUN 17
Creatinine 0.7
Glucose 221 H
Calcium 9.0
Vital Signs:
Vital Signs
Temp Pulse Resp BP Pulse Ox
98.0 F 88 18 112/60 92
08/14/25 07:00 08/14/25 09:05 08/14/25 09:05 08/14/25 07:00 08/14/25 08:58
[2025-08-14 12:36] LABS: Glucose - Point of Care 353 mg/dl (70-99)
[2025-08-14] MEDS: NOVOLOG FLEXPEN-LOW RESISTANCE 5 UNITS SC (13:14)
--- NOTE | 2025-08-14 13:47 | CM ---
manager inside reviewed patient's chart and met with patient and patient lives alone in a one story home with one set to enter, patient is independent with adl's and ambulation, home no needs when stable.
PCP: Dr Rosales
Pharmacy: [facility] on [facility]
--- NOTE | 2025-08-14 14:12 | CON.PUL ---
Consultation
Consultation Request
Date/Time Consultation Requested: 08/14/2025
Date/Time Consultation Performed: 08/14/2025
Requesting Provider: Dr. Gupta
Performing Provider: Dr. Miguel Lyon
Reason for Consultation: Abnormal CT chest
Medical History
-
History of Present Illness:
69-year-old male with past medical history significant for hypertension, type 2 diabetes, atrial fibrillation who presented to the emergency room with shortness of breath on 08/13/2025. Patient states that for the last 4 weeks he has been sick. He
was admitted to the hospital in early July and discharged on antibiotics. More recently he was placed on Levaquin by primary doctor.
CT of the chest demonstrated persistent bilateral/bibasilar infiltrates-nonprogressive.
Reports shortness of breath intermittently with activity.
There is no reports of fevers, chills or phlegm production.
Came to the emergency room for evaluation of exertional dyspnea.
Past Medical History
Past Medical History: Other (See assessment and plan)
Social History
Tobacco: Non-smoker
Alcohol: Occasional
Drug: None
Family History
Family History: Reviewed & Not Pertinent
Allergies / Home Medications
Allergies
Allergy/AdvReac Type Severity Reaction Status Date / Time
diazepam (From Valium) Allergy Unknown Verified 10/17/23 22:06
metformin Allergy Unknown Verified 07/23/25 15:47
Home Medications
�Medication �Instructions �Recorded �Confirmed �Last Taken �Type
albuterol sulfate 90 mcg/actuation 2 puff inhalation R Q6HPRN PRN sob 07/23/25 08/14/25 08/14/25 History
aerosol inhaler
alprazolam 2 mg tablet (Xanax) 1 mg PO HSPRN PRN sleep 07/23/25 08/14/25 Unknown History
apixaban 5 mg tablet (Eliquis) 5 mg PO BID Heart Disease/Condition 07/23/25 08/14/25 08/14/25 History
bupropion HCl 150 mg tablet,12 hr 150 mg PO BID Mental Health/Anxiety 07/23/25 08/14/25 08/14/25 History
sustained-release
empagliflozin 25 mg tablet 25 mg PO DAILY Diabetes 07/23/25 08/14/25 08/14/25 History
(Jardiance)
escitalopram oxalate 20 mg tablet 20 mg PO DAILY Mental 07/23/25 08/14/25 08/14/25 History
(Lexapro) Health/Anxiety
finasteride 5 mg tablet 5 mg PO DAILY Urinary Issue 07/23/25 08/14/25 08/14/25 History
fluticasone fur. 100 mcg-umeclid 1 inh inhalation R DAILY 07/23/25 08/14/25 08/14/25 History
62.5 mcg-vilant 25 mcg Lung/Breathing Issues
inhalat.powder (Trelegy Ellipta)
lansoprazole 30 mg capsule,delayed 30 mg PO DAILYPRN PRN gerd 07/23/25 08/14/25 08/14/25 History
release
metoprolol succinate 50 mg 50 mg PO DAILY Heart 07/23/25 08/14/25 08/14/25 History
tablet,extended release 24 hr Disease/Condition
(Toprol XL)
rosuvastatin 40 mg tablet 40 mg PO DAILY High Cholesterol 07/23/25 08/14/25 08/14/25 History
semaglutide 1 mg/dose (4 mg/3 mL) 1 mg SC GRIER Diabetes 07/23/25 08/14/25 08/14/25 History
subcutaneous pen injector (Ozempic)
tamsulosin 0.4 mg capsule 0.4 mg PO DAILY Urinary Issue 07/23/25 08/14/25 08/14/25 History
vibegron 75 mg tablet (Gemtesa) 75 mg PO DAILY Urinary Issue 07/23/25 08/14/25 08/14/25 History
sitagliptin phosphate 50 mg tablet 50 mg PO DAILY 30 days #30 tabs 07/25/25 08/14/25 08/14/25 Rx
(Januvia)
Review of Systems
-
History Source: Patient
All other systems: Negative unless noted
Vitals / Labs / Diagnostic Testing
Vital Signs
Temp Pulse Resp BP Pulse Ox
98.0 F 88 18 112/60 92
08/14/25 07:00 08/14/25 09:05 08/14/25 09:05 08/14/25 07:00 08/14/25 08:58
Lab Data
08/14/25 06:25
08/14/25 06:25
Diagnostic Testing:
Physical Exam
-
HEENT: Normocephalic
Cardiovascular: S1/S2
Respiratory: Non-Labored Respirations
GI: Soft and Non Distended
Neurology: Awake, Alert, Oriented and AO x 3
Skin: Warm
General: Comfortable
Assessment
-
69-year-old male with past medical history noted. Recently discharged from the hospital 07/25/2025 for pneumonia and shortness of breath. Comes back complaining of shortness of breath. CT chest was performed 08/14/2025 and showed persistent
bibasilar infiltrates. Afebrile, no leukocytosis. Only complaint was shortness of breath that has improved.
Abnormal CT chest: Multiple CAT scans reviewed including 07/22/2025, 08/09/2025 and 08/14/2025.
Persistent bibasilar infiltrates left greater than right-stable to slightly improved in 20 days
Completed full dose of antibiotic
Emphysema/COPD: No evidence for acute exacerbation
Conditions present prior admission:
Type 2 diabetes
Hypertension
Atrial fibrillation
Pneumonia with recent completion of antibiotics
Spinal fusion
Cervical fusion
Smoker-quit about 4 weeks ago
JACKSPOOLER/emphysema D-on Trelegy
Assessment and plan:
At this point, from the pulmonary perspective I do not find any acute abnormality.
Differential diagnosis includes recovering pneumonia.
Cryptogenic pneumonia-less likely as there has been no progression with lack of steroids.
There is no peripheral eosinophilia
Normal renal function. Less likely interstitial lung disease as the pattern is not consistent with it.
Cannot rule out underlying lung nodules-malignancy cannot be ruled out either. Changes will need to be followed over time. Certainly it has not progressed in the last 3 to 4 weeks. Sometimes pneumonia takes up to 3 months to completely clear in
someone with emphysema and ongoing smoking.
-
He does have underlying emphysema-quit smoking about 4 weeks ago.
Bibasilar abnormalities within the range of treated pneumonia with slow recovery of infiltrates.
Likely will impair his breathing with underlying emphysema/COPD. He does not follow-up with pulmonary locally. No PFTs available.
-
I agree with no further antibiotics needed
Patient will need outpatient pulmonary follow-up for evaluation.
He may benefit from pulmonary rehabilitation as well as he recovers from pneumonia.
-
Okay to discharge from my perspective with close pulmonary follow-up.
Information will be left in the chart to follow-up my office in the next 2 weeks
Okay to continue with Trelegy
No indication for steroids.
-
Outpatient pulmonary follow-up recommend
Sign off.
[2025-08-14 15:00] VITALS: BP 113/54
--- NOTE | 2025-08-14 16:21 | W.DCSUMMARY ---
Discharge Summary
Discharge Data
Date of Admission: 08/13/25
Date of Discharge: 08/14/25
-
Pending Results: No
Hospital Course
Primary diagnoses:
Dyspnea on exertion
Secondary diagnoses:
Type 2 diabetes mellitus
Essential hypertension
Paroxysmal atrial fibrillation
Hyponatremia
Tobacco abuse disorder
Consults:
Pulmonary
Imaging:
CTA chest: No PE. Pulmonary artery branching order level of the most proximal pulmonary embolism: N/A. Bibasilar pneumonia, left greater than right, without significant interval change. Mild emphysema.
Hospital course: 69-year-old male who was admitted yesterday evening after presenting with chief complaint of shortness of breath as outlined in the H&P done on admission. As noted in the H&P, the patient had had pneumonia and had received multiple
courses of antibiotics. CT angiogram of the chest above without any new findings or pulmonary embolism. Patient was initially placed on oxygen but was quickly weaned to room air. The time of discharge the patient was not hypoxemic or tachypneic.
He was seen in consultation by pulmonary prior to discharge. He was discharged in medically stable condition with close outpatient follow-up.
Discharge Plan
-
Patient Disposition: Home (Routine Discharge)
Discharge Diagnosis/Procedures: Shortness of breath
Condition: Good
Diet: Diabetic, Carb Controlled
Activity: As tolerated
Driving Restrictions: As prior to admission
Referrals:
Andrew Rosales CRNP [Family Provider, General] - in less than 1 week
Miguel Mcfarland MD [Active, Pulmonary Medicine] - in two to three weeks
Referral Note: May see PIEDAD - COPD/Abnormal CT
Prescriptions:
Continued
Eliquis 5 mg Tablet
5 mg PO BID
bupropion HCl 150 mg Tablet Sustained-Release 12 Hr
150 mg PO BID
lansoprazole 30 mg Capsule,Delayed Release(Dr/Ec)
30 mg PO DAILYPRN PRN (Reason: gerd)
rosuvastatin 40 mg Tablet
40 mg PO DAILY
Jardiance 25 mg Tablet
25 mg PO DAILY
Trelegy Ellipta 100-62.5-25 mcg Blister With Device
1 inh INHALATION R DAILY
Gemtesa 75 mg Tablet
75 mg PO DAILY
metoprolol succinate [Toprol XL] 50 mg Tablet Extended Release 24 Hr
50 mg PO DAILY
tamsulosin 0.4 mg Capsule
0.4 mg PO DAILY
alprazolam [Xanax] 2 mg Tablet
1 mg PO HSPRN PRN (Reason: sleep)
albuterol sulfate 90 mcg/actuation Hfa Aerosol Inhaler
2 puff INHALATION R Q6HPRN PRN (Reason: sob)
finasteride 5 mg Tablet
5 mg PO DAILY
escitalopram oxalate [Lexapro] 20 mg Tablet
20 mg PO DAILY
Ozempic 1 mg/dose (4 mg/3 mL) Pen Injector
1 mg SC GRIER
Januvia 50 mg Tablet
50 mg PO DAILY 30 Days Qty: 30 0RF
Discharge Orders:
Discharge Patient (As Directed); Ordered 08/14/25
Ordered By: Efra Gupta
Discharge Date and Time
Print Language: TURKMEN
[2025-08-14 16:25] LABS: Glucose - Point of Care 289 mg/dl (70-99)
[2025-08-14] MEDS: NOVOLOG FLEXPEN-LOW RESISTANCE 2 UNITS SC (16:28)
== END 2025-08-14 17:54 | disposition home or self-care (01) | DRG 204 ==
LOC: 3 WEST ACU 23:49
PROVIDERS: Nurse Practitioner; Registered Nurse; ADMITTING PHYSICIAN Hospitalist; ATTENDING PHYSICIAN Internal Medicine; CONSULT PHYSICIAN Internal Medicine Critical Care Medicine; EMERGENCY PHYSICIAN Emergency Medicine; FAMILY PHYSICIAN Nurse Practitioner Family
DX: R06.09 Other forms of dyspnea (principal); E87.1 Hypo-osmolality and hyponatremia; E11.65 Type 2 diabetes mellitus with hyperglycemia; F17.200 Nicotine dependence, unspecified, uncomplicated; I10 Essential (primary) hypertension; I48.0 Paroxysmal atrial fibrillation; J44.9 Chronic obstructive pulmonary disease, unspecified; Z79.01 Long term (current) use of anticoagulants; Z79.84 Long term (current) use of oral hypoglycemic drugs; Z79.85 Long-term (current) use of injectable non-insulin antidiabetic drugs
CPT/HCPCS: 71275; 80048; 80053; 82962; 83935; 84300; 84484; 85025; 85027; 93005; 94640; 96361; 96374; 99285; 99406; Q9967